=== PATIENT | female | born 1935 | race Caucasian/White ===

== ENCOUNTER 2017-02-07 23:01 | Emergency (ER) | payer MEDICARE, OTHER ==
[2017-02-07 23:52] VITALS: BP 141/68
--- NOTE | 2017-02-08 00:47 | EDM.PDOC ---
ED HPI GENERAL MEDICAL PROBLEM - General Chief Complaint: Genitourinary Problem Stated Complaint: BLADDER INFECTION Time Seen by Provider: 02/08/17 00:44 Source of Information: Reports: Patient, Family, RN Notes Reviewed History Limitations: Reports: No Limitations - History of Present Illness INITIAL COMMENTS - FREE TEXT/NARRATIVE: 81-year-old female presents emergency department day complaint burning with urination, she states the last couple days she denies any fevers nausea or vomiting - Related Data Allergies Allergy/AdvReac Type Severity Reaction Status Date / Time No Known Allergies Allergy Unverified 02/07/17 23:51 Home Meds: Home Meds NK [No Known Home Meds] 02/07/17 [History] Past Medical History HEENT History: Reports: Impaired Vision 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: Breast - Past Surgical History HEENT Surgical History: Reports: Cataract Surgery Oncologic Surgical History: Reports: Mastectomy Social & Family History - Tobacco Use Smoking Status *Q: Never Smoker Second Hand Smoke Exposure: No - Caffeine Use Caffeine Use: Reports: Coffee - Recreational Drug Use Recreational Drug Use: No ED ROS GENERAL - Review of Systems Review Of Systems: See Below Constitutional: Denies: Fever, Chills HEENT: Reports: No Symptoms Respiratory: Reports: No Symptoms Cardiovascular: Reports: No Symptoms GI/Abdominal: Reports: Abdominal Pain (Suprapubic area) : Reports: Dysuria ED EXAM, RENAL/ - Physical Exam Exam: See Below Exam Limited By: No Limitations General Appearance: Alert, WD/WN, No Apparent Distress GI/Abdominal: Soft, Non-Tender Back Exam: Full Range of Motion. No: CVA Tenderness (R), CVA Tenderness (L) Course - Vital Signs Last Recorded V/S: Last Vital Signs Temp 99.7 F 02/07/17 23:53 Pulse 78 02/07/17 23:53 Resp 18 02/07/17 23:53 BP 141/68 H 02/07/17 23:53 Pulse Ox 94 L 02/07/17 23:53 - Orders/Labs/Meds Orders: Active Orders 24 hr Category Date Time Status CULTURE URINE [RM] Urgent Lab 02/08/17 00:40 Ordered Labs: Laboratory Tests 02/08/17 Range/Units 00:05 Urine Color Yellow Urine Appearance Turbid Urine pH 5.0 (4.5-8.0) Ur Specific Verner 1.025 (1.008-1.030) Urine Protein 30 H (NEGATIVE) mg/dL Urine Glucose (UA) Normal (NEGATIVE) mg/dL Urine Ketones Negative (NEGATIVE) mg/dL Urine Occult Blood Large (NEGATIVE) Urine Nitrite Negative (NEGATIVE) Urine Bilirubin Negative (NEGATIVE) Urine Urobilinogen Normal (NORMAL) mg/dL Ur Leukocyte Esterase Large (NEGATIVE) Urine RBC 20-30 H (0-5) Urine WBC Semi-packed H (0-5) Ur Epithelial Cells Few Amorphous Sediment Not seen Urine Bacteria Many Urine Mucus Not seen Departure - Departure Time of Disposition: 00:46 Disposition: Home, Self-Care 01 Condition: Good Clinical Impression: UTI, Urinary tract infectious disease - Discharge Information Forms: ED Department Discharge Additional Instructions: Take full course of antibiotics, use Tylenol or Motrin as needed for symptomatic relief, Please followup with your primary care provider in 3-5 days if not better, please call return to the emergency department with worsening of symptoms. - My Orders Last 24 Hours: My Active Orders 02/08/17 00:40 CULTURE URINE [RM] Urgent - Assessment/Plan Last 24 Hours: My Active Orders 02/08/17 00:40 CULTURE URINE [RM] Urgent Plan: Assessment Acuity = acute Site and laterality = urinary tract infection Etiology = probable bacterial cause Manifestations = dysuria Location of injury = Home Lab values = urinalysis revealed 20-30 Rbc's consistent hematuria and semi- packed WBCs consistent with pyuria cultures pending Plan Plan to empirically treat with Bactrim DS 1 tab by mouth twice a day 5 days follow-up primary care 3-5 days if no improvement Patient was in agreement with the plan all questions were answered, they were instructed to return to the emergency department or call for worsening symptoms. This note was dictated using [employer] voice recognition software please call with any questions.
== END 2017-02-08 01:06 | disposition home or self-care (01) ==
LOC: JP.ED 23:01
DX: N39.0 Urinary tract infection, site not specified (principal); Z98.49 Cataract extraction status, unspecified eye; Z85.3 Personal history of malignant neoplasm of breast
CPT/HCPCS: 81001; 87086; 99283; 99284

== ENCOUNTER 2017-08-28 16:53 | Emergency (ER) | payer MEDICARE ==
[2017-08-28] MEDS ORDERED: Famotidine 20 MG Tab PO ONE (17:20)
[2017-08-28] MEDS ORDERED: Aluminum Hydroxide/Magnesium Hydroxide/Simethicone Susp 30 ML Cup PO ONE (17:20)
--- NOTE | 2017-08-28 17:26 | EDM.PDOC ---
ED HPI GENERAL MEDICAL PROBLEM - General Chief Complaint: Chest Pain Stated Complaint: CHEST PAINS Time Seen by Provider: 08/28/17 17:10 Source of Information: Reports: Patient, EMS, Old Records History Limitations: Reports: No Limitations - History of Present Illness INITIAL COMMENTS - FREE TEXT/NARRATIVE: 81 yo female presents from her home with intermittent substernal pressure. Today 's episode was longer than usual. Has had these spells on and off randomly for a few years. NTG en route via EMS reduced, but did not eliminate her pain. While getting assessed by nursing her pain fully resolved. Has had EST test more than once in the past to work this up and she has always been told there is nothing wrong with her heart. An EKG per EMS today was normal. Does not relate the onset of activities to activity, breathing, or eating/ swallowing. Has no associated nausea, diaphoresis or SOB. Onset: Today Onset Date: 08/28/17 Onset Time: 16:05 Duration: Minutes:, Improving Location: Reports: Chest (substernal) Quality: Reports: Pressure Severity: Moderate Improves with: Reports: None Worsens with: Reports: None Context: Reports: Other (unknown context) Associated Symptoms: Reports: No Other Symptoms Treatments RADIO OPERATOR: Reports: EKG, Nitroglycerin (partial reduction with this treatment) Mid-Sternal Chest Pain Score (Numeric/FACES): 7 - Related Data Allergies Allergy/AdvReac Type Severity Reaction Status Date / Time No Known Allergies Allergy Verified 08/28/17 17:08 Home Meds: Home Meds Famotidine 20 mg PO BEDTIME #30 tablet 08/28/17 [Rx] Past Medical History HEENT History: Reports: Cataract, Impaired Vision 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: 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: Breast Other Oncologic History: 2010 - Past Surgical History HEENT Surgical History: Reports: Cataract Surgery Oncologic Surgical History: Reports: Mastectomy Social & Family History - Tobacco Use Smoking Status *Q: Never Smoker Second Hand Smoke Exposure: No - Caffeine Use Caffeine Use: Reports: Coffee - Recreational Drug Use Recreational Drug Use: No ED ROS GENERAL - Review of Systems Review Of Systems: See Below Constitutional: Reports: No Symptoms HEENT: Reports: No Symptoms Respiratory: Reports: No Symptoms Cardiovascular: Reports: Chest Pain Endocrine: Reports: No Symptoms GI/Abdominal: Reports: No Symptoms : Reports: No Symptoms Musculoskeletal: Reports: Other (random intermittent sharp pain down her R leg starting at the hip area.) Skin: Reports: No Symptoms Neurological: Reports: No Symptoms ED EXAM, GENERAL - Physical Exam Exam: See Below Exam Limited By: No Limitations General Appearance: Alert, WD/WN, No Apparent Distress Eye Exam: Bilateral Eye: Normal Inspection Ears: Normal External Exam, Normal Canal, Hearing Grossly Normal Ear Exam: Bilateral Ear: Auricle Normal, Canal Normal Nose: Normal Inspection, Normal Mucosa, No Blood Throat/Mouth: Normal Inspection, Normal Lips, Normal Teeth, Normal Oropharynx, Normal Voice, No Airway Compromise Head: Atraumatic, Normocephalic Neck: Normal Inspection, Supple Respiratory/Chest: No Respiratory Distress, Lungs Clear, Normal Breath Sounds, No Accessory Muscle Use, Chest Non-Tender Cardiovascular: Regular Rate, Rhythm, No Edema GI/Abdominal: Normal Bowel Sounds, Soft, Non-Tender Back Exam: Normal Inspection. No: CVA Tenderness (R), CVA Tenderness (L) Extremities: Normal Inspection, Normal Range of Motion, Non-Tender, No Pedal Edema, Other (I am not able on exam to localize or reproduce the pain she described as intermittently shooting down her R leg. ) Neurological: Alert, Oriented, CN II-XII Intact, Normal Cognition, No Motor/ Sensory Deficits Psychiatric: Normal Affect, Normal Mood Skin Exam: Warm, Dry, Intact, Normal Color, No Rash Lymphatic: No Adenopathy EKG INTERPRETATION EKG Date: 08/28/17 Time: 16:45 Rhythm: NSR Rate (Beats/Min): 77 [place]: Normal P-Wave: Present QRS: Normal ST-T: Normal QT: Normal Comparison: NA - No Prior EKG EKG Interpretation Comments: Normal EKG Course - Vital Signs Text/Narrative:: famotidine 20 mg po, Maalox 30 ml po Ambulated in the ER without a recurrence of her pain. Last Recorded V/S: Last Vital Signs Temp 37.3 C 08/28/17 17:02 Pulse 63 08/28/17 17:02 Resp 18 08/28/17 17:02 BP 118/44 L 08/28/17 17:02 Pulse Ox 98 08/28/17 17:02 - Orders/Labs/Meds Labs: Laboratory Tests 08/28/17 08/28/17 08/28/17 Range/Units 16:57 16:57 16:57 WBC 10.9 (4.5-11.0) K/uL RBC 3.90 (3.30-5.50) M/uL Hgb 11.9 L (12.0-15.0) g/dL Hct 37.4 (36.0-48.0) % MCV 96 (80-98) fL MCH 31 (27-31) pg MCHC 32 (32-36) % Plt Count 227 (150-400) K/uL Sodium 137 L (140-148) mmol/L Potassium 3.6 (3.6-5.2) mmol/L Chloride 102 (100-108) mmol/L Carbon Dioxide 27 (21-32) mmol/L Anion Gap 11.6 (5.0-14.0) mmol/L BUN 22 H (7-18) mg/dL Creatinine 0.8 (0.6-1.0) mg/dL Est Cr Clr Drug Dosing 42.88 mL/min Estimated GFR (MDRD) > 60 (>60) Glucose 128 H (74-106) mg/dL Calcium 8.8 (8.5-10.1) mg/dL Troponin I < 0.017 (0.000-0.056) ng/mL Meds: Medications Discontinued Medications Generic Name Dose Route Start Last Admin Trade Name Nannette PRN Reason Stop Dose Admin Al Hydroxide/Mg Hydroxide 30 ml 08/28/17 17:20 08/28/17 17:31 Mag-Al Plus PO 08/28/17 17:21 30 ml ONETIME ONE Administration Famotidine 20 mg 08/28/17 17:20 08/28/17 17:31 Pepcid PO 08/28/17 17:21 20 mg ONETIME ONE Administration Departure - Departure Time of Disposition: 17:45 Disposition: Home, Self-Care 01 Condition: Good Clinical Impression: Nutcracker esophagus Referrals: PCP,None [Primary Care Provider] - Forms: ED Department Discharge
[2017-08-28 17:57] VITALS: BP 127/61
== END 2017-08-28 18:34 | disposition home or self-care (01) ==
LOC: JP.ED 16:53
DX: K22.4 Dyskinesia of esophagus (principal)
CPT/HCPCS: 36415; 80048; 84484; 85027; 99285; A9270

== ENCOUNTER 2020-02-27 10:25 | Emergency (ER) | payer MEDICARE ==
[2020-02-27 10:43] VITALS: BP 136/78; PULSE 81
[2020-02-27] MEDS ORDERED: Diphtheria,Pertussis(Acell),Tetanus Vaccine 0.5 ML SDV IM ONE (11:24)
--- NOTE | 2020-02-27 11:34 | EDM.PDOC ---
ED HPI GENERAL MEDICAL PROBLEM - General Chief Complaint: Laceration Stated Complaint: DOG BITE RT ARM Time Seen by Provider: 02/27/20 10:54 Source of Information: Reports: Patient History Limitations: Reports: No Limitations - History of Present Illness INITIAL COMMENTS - FREE TEXT/NARRATIVE: 84 yo female presents to clinic following a dog bite that occurred last evening. Her own dog was scared of fireworks and hiding under deck she tried to move the dog from the desk and the dog bit her right wrist breaking the skin. The dog is up to date on vaccinations. 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: Musculoskeletal History: Reports: Fracture 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: Breast Other Oncologic History: 2010 - Past Surgical History HEENT Surgical History: Reports: Cataract Surgery Oncologic Surgical History: Reports: Mastectomy Social & Family History - Tobacco Use Smoking Status *Q: Never Smoker - Caffeine Use Caffeine Use: Reports: Coffee - Recreational Drug Use Recreational Drug Use: No ED ROS GENERAL - Review of Systems Review Of Systems: See Below Constitutional: Denies: Fever, Chills, Fatigue Respiratory: Denies: Shortness of Breath, Wheezing Cardiovascular: Denies: Chest Pain ED EXAM, SKIN/RASH Exam: See Below Exam Limited By: No Limitations General Appearance: Alert, WD/WN, No Apparent Distress Respiratory/Chest: No Respiratory Distress Skin: Warm, Dry, Intact, Other (wound to right wrist superfisial on dorsal aspect from dog canines with superfisial punctures on anterior aspect, surrounding ecchymosis. cms distill to injury intact) Course - Vital Signs Last Recorded V/S: Last Vital Signs Temp 36.8 C 02/27/20 10:41 Pulse 81 02/27/20 10:41 Resp 16 02/27/20 10:41 BP 136/78 02/27/20 10:41 Pulse Ox 96 02/27/20 10:41 - Orders/Labs/Meds Orders: Active Orders 24 hr Category Date Time Status Vaccines to be Administered [RC] PER UNIT ROUTINE Care 02/27/20 11:24 Active Meds: Medications Discontinued Medications Generic Name Dose Route Start Last Admin Trade Name Nannette PRN Reason Stop Dose Admin Diphtheria/Tetanus/Acell Pertussis 0.5 ml 02/27/20 11:24 Adacel IM 02/27/20 11:25 .ONCE ONE Departure - Departure Time of Disposition: 11:29 Disposition: Home, Self-Care 01 Condition: Good Clinical Impression: Dog bite of right arm Qualifiers: Encounter type: initial encounter Qualified Code(s): S41.151A - Open bite of right upper arm, initial encounter - Discharge Information *PRESCRIPTION DRUG MONITORING PROGRAM REVIEWED*: Not Applicable *COPY OF PRESCRIPTION DRUG MONITORING REPORT IN PATIENT RONNIE: Not Applicable Instructions: Animal Bite, Adult, [id number] Referrals: Kiko Ewing MD [Primary Care Provider] - Forms: ED Department Discharge Additional Instructions: wash with warm soapy water pat dry topical antibiotic until healed Augmentin 500 mg twice daily for 3 days observe for signs of infection: fire engine red, purulent drainage, increase in pain Sepsis Event Note (ED) - Evaluation Sepsis Screening Result: No Definite Risk - Focused Exam Vital Signs: Vital Signs Temp Pulse Resp BP Pulse Ox 02/27/20 10:41 36.8 C 81 16 136/78 96 - My Orders Last 24 Hours: My Active Orders 02/27/20 11:24 Vaccines to be Administered [RC] PER UNIT ROUTINE - Assessment/Plan Last 24 Hours: My Active Orders 02/27/20 11:24 Vaccines to be Administered [RC] PER UNIT ROUTINE
== END 2020-02-27 11:50 | disposition home or self-care (01) ==
LOC: JP.ED 10:25
DX: S41.151A Open bite of right upper arm, initial encounter (principal); Z23 Encounter for immunization; Z98.890 Other specified postprocedural states; W54.0XXA Bitten by dog, initial encounter
CPT/HCPCS: 90471; 90715; 99283

== ENCOUNTER 2021-04-20 00:07 | Inpatient (IN) | payer MEDICARE ==
[2021-04-20] MEDS ORDERED: Sodium Chloride 0.9% 10 ML Syringe FLUSH PRN ×2 (00:30→02:52)
--- NOTE | 2021-04-20 00:48 | EDM.PDOC ---
ED HPI GENERAL MEDICAL PROBLEM - General Chief Complaint: Respiratory Problem Stated Complaint: COVID POSITIVE Time Seen by Provider: 04/20/21 00:30 Source of Information: Reports: Patient, Family History Limitations: Reports: Other (Is extremely hard of hearing and did not put new batteries in her hearing aids. Her daughter communicated with the patient via of phone with text messaging.) - History of Present Illness INITIAL COMMENTS - FREE TEXT/NARRATIVE: Yenifer is an 85-year-old female presenting to the ED for evaluation of worsening shortness of breath, fever and hypoxia associated with COVID-19 infection. The patient was initially diagnosed with COVID-19 on 04/08/2021. She did not receive a COVID-19 vaccine. Appears that the patient's son first had the infection. He lives with the patient and she subsequently developed symptoms including fever, chills, headache and body aches, decreased appetite, shortness of breath, cough, and diarrhea. The patient had been doing better over the course of the last couple of days after being started on dexamethasone 4 mg daily x5 days. She concluded this regimen today and daughter checked on the patient finding her to be hypoxic at 88% on room air and becoming further hypoxic to 84% with activity. The patient has had significant diminished appetite, continues to have a low- grade fever at 100 F, and has had diarrhea for the last day or 2. The daughter did get her electrolyte rich solutions like Pedialyte to try to rehydrate her but the patient has no appetite and only forces herself to eat out of the need for nutrition. Daughter tried to get a hold of Dr. Ewing who was the patient's primary provider to see if they could get home oxygen for the patient, however, the clinic is already closed and he was not available to arrange this. With the patient's worsening condition today and progressive hypoxia, the daughter elected to bring the patient in for evaluation and likely hospitalization. The daughter does report that the patient has had grunting respirations today which is unusual. 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: Musculoskeletal History: Reports: Fracture 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: Breast Other Oncologic History: 2010 - Infectious Disease History Infectious Disease History: Reports: Chicken Pox, Measles, Mumps - Past Surgical History HEENT Surgical History: Reports: Cataract Surgery Oncologic Surgical History: Reports: Mastectomy Social & Family History - Tobacco Use Tobacco Use Status *Q: Never Tobacco User - Caffeine Use Caffeine Use: Reports: Coffee ED ROS GENERAL - Review of Systems Review Of Systems: See Below Constitutional: Reports: Fever, Chills, Malaise, Weakness, Diaphoresis, Decreased Appetite HEENT: Reports: Throat Pain Respiratory: Reports: Shortness of Breath, Cough Cardiovascular: Reports: Dyspnea on Exertion Endocrine: Reports: Fatigue GI/Abdominal: Reports: Diarrhea : Reports: No Symptoms Musculoskeletal: Reports: Muscle Pain Skin: Reports: No Symptoms Neurological: Reports: Headache Psychiatric: Reports: No Symptoms Hematologic/Lymphatic: Reports: No Symptoms Immunologic: Reports: No Symptoms ED EXAM, GENERAL - Physical Exam Exam: See Below Exam Limited By: No Limitations General Appearance: Alert, Anxious, Mild Distress Eye Exam: Bilateral Eye: EOMI, PERRL Nose: Nasal Swelling, Nasal Drainage Throat/Mouth: Normal Voice, No Airway Compromise, Other (Dry mucous membranes) Head: Atraumatic, Normocephalic Neck: Normal Inspection, Supple. No: Lymphadenopathy (R), Lymphadenopathy (L) Respiratory/Chest: No Respiratory Distress, Decreased Breath Sounds (Diminished breath sounds in both bases), Rhonchi (Scattered rhonchi) Cardiovascular: Normal Peripheral Pulses, Regular Rate, Rhythm, No Murmur Peripheral Pulses: 2+: Radial (L), Radial (R), Posterior Tibial (L), Posterior Tibial (R) GI/Abdominal: Soft, Non-Tender, Abnormal Bowel Sounds (Diminished bowel sounds). No: Guarding, Rebound Extremities: Normal Inspection, Normal Range of Motion, No Pedal Edema Neurological: Alert, Normal Cognition, No Motor/Sensory Deficits Psychiatric: Anxious Skin Exam: Warm, Dry, Intact Course - Vital Signs Last Recorded V/S: Last Vital Signs Temp 38.8 C H 04/20/21 00:19 Pulse 95 04/20/21 00:19 Resp 20 04/20/21 00:19 BP 154/65 H 04/20/21 00:19 Pulse Ox 84 L 04/20/21 00:19 - Orders/Labs/Meds Orders: Active Orders 24 hr Category Date Time Status Chest 1V Frontal [CR] Stat Exams 04/20/21 00:30 Taken Sodium Chloride 0.9% [Saline Flush] Med 04/20/21 00:30 Active 10 ml FLUSH ASDIRECTED PRN Saline Lock Insert [OM.PC] Routine Oth 04/20/21 00:30 Ordered Medication Orders Sodium Chloride (Sodium Chloride 0.9% 10 Ml Syringe) 10 ml FLUSH ASDIRECTED PRN PRN Reason: Keep Vein Open Last Admin: 04/20/21 00:51 Dose: 10 ml Documented by: JAMSHID Labs: Laboratory Tests 04/20/21 04/20/21 04/20/21 Range/Units 00:40 00:40 00:40 WBC 9.3 (4.5-11.0) K/uL RBC 4.23 (3.30-5.50) M/uL Hgb 12.8 (12.0-15.0) g/dL Hct 37.6 (36.0-48.0) % MCV 89 (80-98) fL MCH 30 (27-31) pg MCHC 34 (32-36) % Plt Count 176 (150-400) K/uL Neut % (Auto) 92.4 H (36-66) % Lymph % (Auto) 4.0 L (24-44) % [place] % (Auto) 3.4 (2-6) % Eos % (Auto) 0.0 L (2-4) % Baso % (Auto) 0.2 (0-1) % D-Dimer, Quantitative 984.09 H (0.0-500.0) ng/mL Sodium 129 L (140-148) mmol/L Potassium 4.8 (3.6-5.2) mmol/L Chloride 95 L (100-108) mmol/L Carbon Dioxide 24 (21-32) mmol/L Anion Gap 14.8 H (5.0-14.0) mmol/L BUN 18 (7-18) mg/dL Creatinine 0.8 (0.6-1.0) mg/dL Est Cr Clr Drug Dosing 41.76 mL/min Estimated GFR (MDRD) > 60 (>60) Glucose 140 H (74-106) mg/dL Lactic Acid (0.4-2.0) mmol/L Calcium 7.8 L (8.5-10.1) mg/dL Ferritin 1263 H (8-388) ng/ml Total Bilirubin 0.7 (0.2-1.0) mg/dL AST 59 H (15-37) U/L ALT 46 (12-78) U/L Alkaline Phosphatase 42 L (46-116) U/L Lactate Dehydrogenase 530 H (82-234) U/L C-Reactive Protein 17.39 H (0.0-0.3) mg/dL Total Protein 5.6 L (6.4-8.2) g/dL Albumin 2.4 L (3.4-5.0) g/dL Globulin 3.2 (2.3-3.5) g/dL Albumin/Globulin Ratio 0.8 L (1.2-2.2) 04/20/21 Range/Units 00:40 WBC (4.5-11.0) K/uL RBC (3.30-5.50) M/uL Hgb (12.0-15.0) g/dL Hct (36.0-48.0) % MCV (80-98) fL MCH (27-31) pg MCHC (32-36) % Plt Count (150-400) K/uL Neut % (Auto) (36-66) % Lymph % (Auto) (24-44) % [place] % (Auto) (2-6) % Eos % (Auto) (2-4) % Baso % (Auto) (0-1) % D-Dimer, Quantitative (0.0-500.0) ng/mL Sodium (140-148) mmol/L Potassium (3.6-5.2) mmol/L Chloride (100-108) mmol/L Carbon Dioxide (21-32) mmol/L Anion Gap (5.0-14.0) mmol/L BUN (7-18) mg/dL Creatinine (0.6-1.0) mg/dL Est Cr Clr Drug Dosing mL/min Estimated GFR (MDRD) (>60) Glucose (74-106) mg/dL Lactic Acid 2.5 H (0.4-2.0) mmol/L Calcium (8.5-10.1) mg/dL Ferritin (8-388) ng/ml Total Bilirubin (0.2-1.0) mg/dL AST (15-37) U/L ALT (12-78) U/L Alkaline Phosphatase (46-116) U/L Lactate Dehydrogenase (82-234) U/L C-Reactive Protein (0.0-0.3) mg/dL Total Protein (6.4-8.2) g/dL Albumin (3.4-5.0) g/dL Globulin (2.3-3.5) g/dL Albumin/Globulin Ratio (1.2-2.2) Meds: Medications Generic Name Dose Route Start Last Admin Trade Name Freq PRN Reason Stop Dose Admin Sodium Chloride 10 ml 04/20/21 00:30 04/20/21 00:51 Sodium Chloride 0.9% 10 Ml Syringe FLUSH 10 ml ASDIRECTED PRN Administration Keep Vein Open - Radiology Interpretation Free Text/Narrative:: He 1 view chest x-ray obtained on the patient showing scattered fluffy infiltrates in both lungs consistent with Covid lung. These likely represent micro emboli and small pulmonary infarcts. - Re-Assessments/Exams Free Text/Narrative Re-Assessment/Exam: 04/20/21 01:55 reviewed the patient's labs showing a CBC with a leukocyte count of 9.3, hemoglobin of 12.8, hematocrit of 37.6 and a platelet count of 176,000. Was a normal differential and leukocyte count. The patient has mild hyponatremia with a sodium of 129 and a chloride of 95, potassium is 4.8 and bicarbonate is 23.9, BUN of 18 with a creatinine of 0.7 and a glucose of 140. Venous lactic acid is elevated at 2.5, C-reactive protein is elevated at 17.4, LDH is elevated at 530, and D-dimer is elevated at 984. Calcium is low at 7.8 with an albumin of 2.4 the gives a corrected calcium of 8.6. Is in normal range. Chest x-ray is obtained showing scattered fluffy infiltrates consistent with Covid lung likely representing micro emboli. This would account for the markedly elevated D-dimer. The patient is requiring oxygen to maintain saturations above 90% so she will likely need to be admitted. Her primary care provider happens to be the hospitalist on-call Dr. Gildardo rg so I will call him to alert him to her admission. Departure - Departure Time of Disposition: 01:58 Disposition: Admitted As Inpatient 65 Clinical Impression: COVID-19, Hypoxia, Hyponatremia - Discharge Information Referrals: Kiko Ewing MD [Primary Care Provider] - Forms: ED Department Discharge Sepsis Event Note (ED) - Evaluation Sepsis Screening Result: Possible Sepsis Risk - Focused Exam Vital Signs: Vital Signs Temp Pulse Resp BP Pulse Ox 04/20/21 00:19 38.8 C H 95 20 154/65 H 84 L - Problem List & Annotations (1) COVID-19 SNOMED Code(s): 087731614 Code(s): U07.1 - COVID-19 Status: Acute Priority: High Current Visit: Yes (2) Hyponatremia SNOMED Code(s): 25144112 Code(s): E87.1 - HYPO-OSMOLALITY AND HYPONATREMIA Status: Acute Priority: High Current Visit: Yes (3) Hypoxia SNOMED Code(s): 916343251 Code(s): R09.02 - HYPOXEMIA Status: Acute Priority: High Current Visit: Yes - Problem List Review Problem List Initiated/Reviewed/Updated: Yes - My Orders Last 24 Hours: My Active Orders 04/20/21 00:30 Chest 1V Frontal [CR] Stat Sodium Chloride 0.9% [Saline Flush] 10 ml FLUSH ASDIRECTED PRN Saline Lock Insert [OM.PC] Routine - Assessment/Plan Last 24 Hours: My Active Orders 04/20/21 00:30 Chest 1V Frontal [CR] Stat Sodium Chloride 0.9% [Saline Flush] 10 ml FLUSH ASDIRECTED PRN Saline Lock Insert [OM.PC] Routine
[2021-04-20] MEDS ORDERED: Enoxaparin 80 MG/0.8 ML Syringe SUBCUT SCH (03:30)
--- NOTE | 2021-04-20 03:49 | HP ---
CHIEF COMPLAINT: Shortness of breath with low O2 saturations. HISTORY OF PRESENT ILLNESS: This 85-year-old was diagnosed with COVID about 10 days ago. Five days ago, she did call because she was short of breath, looking for symptom relief or treatment. At that time, I did recommend monoclonal antibodies which she did decline, but also recommended dexamethasone, which she finished yesterday. Her daughter is with her today in the emergency room after being brought in from home. Apparently, she was doing better. Her breathing was better, but the morning of the she was having more trouble with breathing, gasping at times with low O2 saturation, and they brought her into the emergency room for further evaluation. She was noted to have low O2 sats with hypoxia with abnormal chest x-ray, and I was asked to admit the patient for further evaluation and treatment. The patient does not have batteries in her hearing aids, so it is very difficult for her to hear, but her daughter would text her, and she would answer. PAST MEDICAL HISTORY: 1. History of breast cancer. 2. Diverticulitis in the past. 3. Nutcracker esophagus. 4. Osteoarthritis of right knee. 5. Recurrent urinary tract infections. CURRENT MEDICATIONS: Just finished dexamethasone 4 mg daily, zinc 25 mg daily, turmeric 500 mg daily, grape seed extract 100 mg daily, astaxanthin 4 mg daily, magnesium 500 mg daily, calcium 250 mg daily, Krill oil 500 mg daily, vitamin D3 1000 units daily, probiotic daily, and multivitamin daily. ALLERGIES: NONE. SOCIAL HISTORY: She has never smoked. FAMILY HISTORY: Noncontributory. REVIEW OF SYSTEMS: She did have problems with nausea earlier in the week, but that is better. She has been running a fever off and on. No report of any chest pain other than tightness in her chest with shortness of breath and cough. No diarrhea. No urinary problems. PHYSICAL EXAMINATION: VITAL SIGNS: Her weight in the clinic last was on 04/03/2021, and it was 67 kg at that time. Temperature 38.8, pulse 95, blood pressure 154/65, respirations 20, and O2 saturation 84% on room air. GENERAL: The patient is very hard hearing, which makes communication difficult with her. HEENT: Pharynx is clear. NECK: Supple. No adenopathy or thyromegaly. LUNGS: Coarse bilaterally. HEART: Regular. I do not hear any murmurs. ABDOMEN: Soft. It did not appear to cause any tenderness. No mass or organomegaly palpated. EXTREMITIES: No edema. SKIN: Negative. IMAGING: Chest x-ray does show patchy infiltrates consistent with COVID pneumonia. LABORATORY DATA: White count 9.3, hemoglobin 12.8, and platelets 176,000. D-dimer was elevated at 984. Sodium 129, potassium 4.8, chloride 95, BUN is 18, creatinine 0.8, and glucose 140. Lactic acid was elevated at 2.5. Calcium is low at 7.8. Ferritin 1263. Liver functions: AST was slightly elevated at 59, ALT was normal at 46, and bilirubin normal at 0.7. C-reactive protein was elevated at 17.39. LDH was elevated at 530. ASSESSMENT: 1. COVID pneumonia with elevated D-dimer. Because of this, we will start her on subcutaneous Lovenox b.i.d. and oxygen. She just finished a course of dexamethasone, and it is too far out for remdesivir or monoclonal antibodies. I did talk to the daughter regarding code status, and she does not think that she would want to be put on a ventilator, but difficult to communicate with her now. We will see if we can find healthcare directive. We will admit her inpatient. Anticipate more than two midnight stays. Transfer care to the hospitalist service in the morning. 2. History of breast cancer in the past. 3. Osteoarthritis of right knee. 4. Recurring urinary tract infections. Kiko Ewing MD /[id number]
[2021-04-20] MEDS: guaiFENesin/Dextromethorphan 100-10 MG/5 ML Soln 10 ML Cup PO PRN (10:58)
[2021-04-20] MEDS: Dexamethasone 4 MG/ML SDV IVPUSH SCH (10:58)
[2021-04-20] MEDS ORDERED: Ondansetron 4 MG Tab.DIS PO PRN (12:09)
[2021-04-20] MEDS ORDERED: Ondansetron 4 MG/2 ML SDV IVPUSH PRN (12:09)
--- NOTE | 2021-04-20 12:10 | PCM.PN ---
- General Info Date of Service: 04/20/21 Subjective Update: No acute events overnight following admission. Communication is difficult because she is very hard of hearing. She did not report any chest pain. She has been on 3 L for the most part but did require more supplemental oxygen for a period of time. Seems to be doing better laying on her side or partially on her stomach. She has a dry cough. No fevers this morning. We did discuss remdesivir and at this time she would like to avoid the medication because of concerns about potential side effects that she has heard about. She is interested in dexamethasone. - Review of Systems General: Reports: Fever, Weakness Pulmonary: Reports: Shortness of Breath - Patient Data Vitals - Most Recent: Last Vital Signs Temp 37.8 C 04/20/21 11:12 Pulse 79 04/20/21 11:12 Resp 21 H 04/20/21 11:12 BP 104/46 L 04/20/21 11:12 Pulse Ox 91 L 04/20/21 11:12 Weight - Most Recent: 63.957 kg Lab Results Last 24 Hours: Laboratory Results - last 24 hr 04/20/21 04/20/21 04/20/21 Range/Units 00:40 00:40 00:40 WBC 9.3 (4.5-11.0) K/uL RBC 4.23 (3.30-5.50) M/uL Hgb 12.8 (12.0-15.0) g/dL Hct 37.6 (36.0-48.0) % MCV 89 (80-98) fL MCH 30 (27-31) pg MCHC 34 (32-36) % Plt Count 176 (150-400) K/uL Neut % (Auto) 92.4 H (36-66) % Lymph % (Auto) 4.0 L (24-44) % Carver % (Auto) 3.4 (2-6) % Eos % (Auto) 0.0 L (2-4) % Baso % (Auto) 0.2 (0-1) % D-Dimer, Quantitative 984.09 H (0.0-500.0) ng/mL Sodium 129 L (140-148) mmol/L Potassium 4.8 (3.6-5.2) mmol/L Chloride 95 L (100-108) mmol/L Carbon Dioxide 24 (21-32) mmol/L Anion Gap 14.8 H (5.0-14.0) mmol/L BUN 18 (7-18) mg/dL Creatinine 0.8 (0.6-1.0) mg/dL Est Cr Clr Drug Dosing 41.76 mL/min Estimated GFR (MDRD) > 60 (>60) Glucose 140 H (74-106) mg/dL Lactic Acid (0.4-2.0) mmol/L Calcium 7.8 L (8.5-10.1) mg/dL Ferritin 1263 H (8-388) ng/ml Total Bilirubin 0.7 (0.2-1.0) mg/dL AST 59 H (15-37) U/L ALT 46 (12-78) U/L Alkaline Phosphatase 42 L (46-116) U/L Lactate Dehydrogenase 530 H (82-234) U/L C-Reactive Protein 17.39 H (0.0-0.3) mg/dL Total Protein 5.6 L (6.4-8.2) g/dL Albumin 2.4 L (3.4-5.0) g/dL Globulin 3.2 (2.3-3.5) g/dL Albumin/Globulin Ratio 0.8 L (1.2-2.2) 04/20/21 Range/Units 00:40 WBC (4.5-11.0) K/uL RBC (3.30-5.50) M/uL Hgb (12.0-15.0) g/dL Hct (36.0-48.0) % MCV (80-98) fL MCH (27-31) pg MCHC (32-36) % Plt Count (150-400) K/uL Neut % (Auto) (36-66) % Lymph % (Auto) (24-44) % Carver % (Auto) (2-6) % Eos % (Auto) (2-4) % Baso % (Auto) (0-1) % D-Dimer, Quantitative (0.0-500.0) ng/mL Sodium (140-148) mmol/L Potassium (3.6-5.2) mmol/L Chloride (100-108) mmol/L Carbon Dioxide (21-32) mmol/L Anion Gap (5.0-14.0) mmol/L BUN (7-18) mg/dL Creatinine (0.6-1.0) mg/dL Est Cr Clr Drug Dosing mL/min Estimated GFR (MDRD) (>60) Glucose (74-106) mg/dL Lactic Acid 2.5 H (0.4-2.0) mmol/L Calcium (8.5-10.1) mg/dL Ferritin (8-388) ng/ml Total Bilirubin (0.2-1.0) mg/dL AST (15-37) U/L ALT (12-78) U/L Alkaline Phosphatase (46-116) U/L Lactate Dehydrogenase (82-234) U/L C-Reactive Protein (0.0-0.3) mg/dL Total Protein (6.4-8.2) g/dL Albumin (3.4-5.0) g/dL Globulin (2.3-3.5) g/dL Albumin/Globulin Ratio (1.2-2.2) Med Orders - Current: Current Medications Acetaminophen (Acetaminophen 325 Mg Tab) 650 mg PO Q4H PRN PRN Reason: Pain/Fever Benzonatate (Benzonatate 100 Mg Cap) 100 mg PO Q8H PRN PRN Reason: Cough Dexamethasone (Dexamethasone 4 Mg/Ml Sdv) 6 mg IVPUSH Q24H [facility] Last Admin: 04/20/21 10:58 Dose: 6 mg Documented by: Enoxaparin Sodium (Enoxaparin 40 Mg/0.4 Ml Syringe) 40 mg SUBCUT DAILY [facility] Guaifenesin/Dextromethorphan (Guaifenesin/Dextromethorphan 100-10 Mg/5 Ml Soln 10 Ml Cup) 10 ml PO Q4H PRN PRN Reason: Cough Last Admin: 04/20/21 10:58 Dose: 10 ml Documented by: Melatonin (Melatonin 3 Mg Tab) 9 mg PO BEDTIME PRN PRN Reason: Sleep Sodium Chloride (Sodium Chloride 0.9% 10 Ml Syringe) 10 ml FLUSH ASDIRECTED PRN PRN Reason: Keep Vein Open Discontinued Medications Enoxaparin Sodium (Enoxaparin 80 Mg/0.8 Ml Syringe) 70 mg SUBCUT Q12H [facility] Last Admin: 04/20/21 03:34 Dose: 70 mg Documented by: Sodium Chloride (Sodium Chloride 0.9% 10 Ml Syringe) 10 ml FLUSH ASDIRECTED PRN PRN Reason: Keep Vein Open Last Admin: 04/20/21 00:51 Dose: 10 ml Documented by: - Exam Quality Assessment: Supplemental Oxygen General: Alert, Cooperative, No Acute Distress Lungs: Normal Respiratory Effort, Crackles (few throughout right lung, left clear). No: Wheezing Cardiovascular: Regular Rate, Regular Rhythm GI/Abdominal Exam: Soft, No Distention Extremities: No Pedal Edema. No: Increased Warmth Skin: Warm, Dry Neurological: Other (very hard of hearing ) Psy/Mental Status: Alert, Normal Affect - Patient Data Lab Results Last 24 hrs: Laboratory Results - last 24 hr 04/20/21 04/20/21 04/20/21 Range/Units 00:40 00:40 00:40 WBC 9.3 (4.5-11.0) K/uL RBC 4.23 (3.30-5.50) M/uL Hgb 12.8 (12.0-15.0) g/dL Hct 37.6 (36.0-48.0) % MCV 89 (80-98) fL MCH 30 (27-31) pg MCHC 34 (32-36) % Plt Count 176 (150-400) K/uL Neut % (Auto) 92.4 H (36-66) % Lymph % (Auto) 4.0 L (24-44) % Carver % (Auto) 3.4 (2-6) % Eos % (Auto) 0.0 L (2-4) % Baso % (Auto) 0.2 (0-1) % D-Dimer, Quantitative 984.09 H (0.0-500.0) ng/mL Sodium 129 L (140-148) mmol/L Potassium 4.8 (3.6-5.2) mmol/L Chloride 95 L (100-108) mmol/L Carbon Dioxide 24 (21-32) mmol/L Anion Gap 14.8 H (5.0-14.0) mmol/L BUN 18 (7-18) mg/dL Creatinine 0.8 (0.6-1.0) mg/dL Est Cr Clr Drug Dosing 41.76 mL/min Estimated GFR (MDRD) > 60 (>60) Glucose 140 H (74-106) mg/dL Lactic Acid (0.4-2.0) mmol/L Calcium 7.8 L (8.5-10.1) mg/dL Ferritin 1263 H (8-388) ng/ml Total Bilirubin 0.7 (0.2-1.0) mg/dL AST 59 H (15-37) U/L ALT 46 (12-78) U/L Alkaline Phosphatase 42 L (46-116) U/L Lactate Dehydrogenase 530 H (82-234) U/L C-Reactive Protein 17.39 H (0.0-0.3) mg/dL Total Protein 5.6 L (6.4-8.2) g/dL Albumin 2.4 L (3.4-5.0) g/dL Globulin 3.2 (2.3-3.5) g/dL Albumin/Globulin Ratio 0.8 L (1.2-2.2) 04/20/21 Range/Units 00:40 WBC (4.5-11.0) K/uL RBC (3.30-5.50) M/uL Hgb (12.0-15.0) g/dL Hct (36.0-48.0) % MCV (80-98) fL MCH (27-31) pg MCHC (32-36) % Plt Count (150-400) K/uL Neut % (Auto) (36-66) % Lymph % (Auto) (24-44) % Carver % (Auto) (2-6) % Eos % (Auto) (2-4) % Baso % (Auto) (0-1) % D-Dimer, Quantitative (0.0-500.0) ng/mL Sodium (140-148) mmol/L Potassium (3.6-5.2) mmol/L Chloride (100-108) mmol/L Carbon Dioxide (21-32) mmol/L Anion Gap (5.0-14.0) mmol/L BUN (7-18) mg/dL Creatinine (0.6-1.0) mg/dL Est Cr Clr Drug Dosing mL/min Estimated GFR (MDRD) (>60) Glucose (74-106) mg/dL Lactic Acid 2.5 H (0.4-2.0) mmol/L Calcium (8.5-10.1) mg/dL Ferritin (8-388) ng/ml Total Bilirubin (0.2-1.0) mg/dL AST (15-37) U/L ALT (12-78) U/L Alkaline Phosphatase (46-116) U/L Lactate Dehydrogenase (82-234) U/L C-Reactive Protein (0.0-0.3) mg/dL Total Protein (6.4-8.2) g/dL Albumin (3.4-5.0) g/dL Globulin (2.3-3.5) g/dL Albumin/Globulin Ratio (1.2-2.2) Result Diagrams: 04/20/21 00:40 04/20/21 00:40 Sepsis Event Note - Evaluation Sepsis Screening Result: Possible Sepsis Risk - Focused Exam Vital Signs: Vital Signs Temp Temp Pulse Resp BP Pulse Ox Pulse Ox 04/20/21 11:12 37.8 C 79 21 H 104/46 L 91 L 04/20/21 11:05 83 L 04/20/21 08:38 99 04/20/21 08:00 37.1 C 83 21 H 96/60 88 L 04/20/21 07:01 89 L 04/20/21 04:24 92 L 04/20/21 04:00 92 L 04/20/21 03:55 86 L 04/20/21 03:49 37.9 C 87 36 H 181/93 H 90 L 04/20/21 03:12 93 L 04/20/21 00:19 38.8 C H 95 20 154/65 H 84 L - Problem List Review Problem List Initiated/Reviewed/Updated: Yes - My Orders Last 24 Hours: My Active Orders 04/20/21 08:38 Pulse Oximetry [RC] ASDIRECTED Benzonatate [Tessalon Perles] 100 mg PO Q8H PRN Dextromethorphan/guaiFENesin [Robitussin DM] 10 ml PO Q4H PRN 04/20/21 09:00 dexAMETHasone [Decadron] 6 mg IVPUSH Q24H 04/20/21 11:22 Acetaminophen [TylenoL] 650 mg PO Q4H PRN Melatonin 9 mg PO BEDTIME PRN 04/20/21 12:09 Ondansetron [Zofran ODT] 4 mg PO Q4H PRN Ondansetron [Zofran] 4 mg IVPUSH Q4H PRN 04/21/21 09:00 Enoxaparin [Lovenox] 40 mg SUBCUT DAILY - Plan Plan:: ASSESSMENT AND PLAN - COVID-19 pneumonia-complicated by acute respiratory failure with hypoxia. She has not been vaccinated. Tested positive on April 10. Mild elevation of D- dimer but significant elevation of CRP. Interested in steroids but not in remdesivir. -Dexamethasone 6 mg daily (day 4, had 3 days as an outpatient) -Supplement oxygen as needed -Symptomatic management of cough -Goal of negative fluid balance each day -Isolation precautions Maintenance issues - -DVT prophylaxis-enoxaparin -GI prophylaxis-not indicated -Nutrition-regular -Burrell catheter-not indicated Disposition -I anticipate discharge home after the hospital stay Primary care physician -Dr. Gildardo Barrera M.D.
[2021-04-20] MEDS: Benzonatate 100 MG Cap PO PRN (15:15)
[2021-04-21] MEDS: guaiFENesin/Dextromethorphan 100-10 MG/5 ML Soln 10 ML Cup PO PRN ×3 (08:41→22:39)
[2021-04-21] MEDS: Benzonatate 100 MG Cap PO PRN (08:41)
[2021-04-21] MEDS: Dexamethasone 4 MG/ML SDV IVPUSH SCH (08:46)
[2021-04-21] MEDS: Enoxaparin 40 MG/0.4 ML Syringe SUBCUT SCH (08:58)
[2021-04-21] MEDS: Acetaminophen 325 MG Tab PO PRN ×2 (11:46→22:41)
--- NOTE | 2021-04-21 13:57 | PCM.PN ---
- General Info Date of Service: 04/21/21 Subjective Update: There were no acute events overnight. Respiratory status have been stable but she has had increasing supplemental oxygen requirements throughout the morning. Worsening of the breathing seem to happen after a coughing spell that was difficult to recover from. No fevers. Seems to have stabilized and is more comfortable now. No chest pain. Feels short of breath and has a dry cough. No diarrhea. We did review potential medication treatments. We reviewed baricitinib and she was interested in trying this. Functional Status: Reports: Pain Controlled - Review of Systems General: Reports: Weakness Pulmonary: Reports: Shortness of Breath, Cough - Patient Data Vitals - Most Recent: Last Vital Signs Temp 36.3 C 04/21/21 11:49 Pulse 76 04/21/21 11:49 Resp 21 H 04/21/21 11:49 BP 121/57 L 04/21/21 11:49 Pulse Ox 92 L 04/21/21 13:47 Weight - Most Recent: 63.957 kg I&O - Last 24 Hours: Intake & Output 04/20/21 04/21/21 04/21/21 22:59 06:59 14:59 Intake Total 296 120 Balance 296 120 Med Orders - Current: Current Medications Acetaminophen (Acetaminophen 325 Mg Tab) 650 mg PO Q4H PRN PRN Reason: Pain/Fever Last Admin: 04/21/21 11:46 Dose: 650 mg Documented by: Benzonatate (Benzonatate 100 Mg Cap) 100 mg PO Q8H PRN PRN Reason: Cough Last Admin: 04/21/21 08:41 Dose: 100 mg Documented by: Dexamethasone (Dexamethasone 4 Mg/Ml Sdv) 6 mg IVPUSH Q24H [facility] Last Admin: 04/21/21 08:46 Dose: 6 mg Documented by: Enoxaparin Sodium (Enoxaparin 40 Mg/0.4 Ml Syringe) 40 mg SUBCUT DAILY [facility] Last Admin: 04/21/21 08:58 Dose: 40 mg Documented by: Guaifenesin/Dextromethorphan (Guaifenesin/Dextromethorphan 100-10 Mg/5 Ml Soln 10 Ml Cup) 10 ml PO Q4H PRN PRN Reason: Cough Last Admin: 04/21/21 08:41 Dose: 10 ml Documented by: Lorazepam (Lorazepam Oral Concentrate 1mg/0.5ml U/D) 0.25 mg PO Q2H PRN PRN Reason: Anxiety Melatonin (Melatonin 3 Mg Tab) 9 mg PO BEDTIME PRN PRN Reason: Sleep Morphine Sulfate (Morphine 10 Mg/0.5 Ml Oral Syringe) 5 mg PO Q2H PRN PRN Reason: pain/air hunger Ondansetron HCl (Ondansetron 4 Mg Tab.Dis) 4 mg PO Q4H PRN PRN Reason: Nausea/Vomiting Ondansetron HCl (Ondansetron 4 Mg/2 Ml Sdv) 4 mg IVPUSH Q4H PRN PRN Reason: Nausea/Vomiting Sodium Chloride (Sodium Chloride 0.9% 10 Ml Syringe) 10 ml FLUSH ASDIRECTED PRN PRN Reason: Keep Vein Open Discontinued Medications Enoxaparin Sodium (Enoxaparin 80 Mg/0.8 Ml Syringe) 70 mg SUBCUT Q12H [facility] Last Admin: 04/20/21 03:34 Dose: 70 mg Documented by: Sodium Chloride (Sodium Chloride 0.9% 10 Ml Syringe) 10 ml FLUSH ASDIRECTED PRN PRN Reason: Keep Vein Open Last Admin: 04/20/21 00:51 Dose: 10 ml Documented by: - Exam Quality Assessment: Supplemental Oxygen General: Alert, Oriented, Cooperative, No Acute Distress Lungs: Crackles (mild diffuse, dry ). No: Normal Respiratory Effort (increased work of breathing ), Wheezing Cardiovascular: Regular Rate, Regular Rhythm GI/Abdominal Exam: Soft, No Distention Extremities: No Pedal Edema. No: Increased Warmth Skin: Warm, Dry Psy/Mental Status: Alert, Normal Affect - Patient Data Result Diagrams: 04/20/21 00:40 04/20/21 00:40 Sepsis Event Note - Evaluation Sepsis Screening Result: No Definite Risk - Focused Exam Vital Signs: Vital Signs Temp Pulse Resp BP Pulse Ox Pulse Ox Pulse Ox 04/21/21 13:47 92 L 04/21/21 13:33 94 L 04/21/21 11:49 36.3 C 76 21 H 121/57 L 91 L 04/21/21 08:00 36.8 C 20 99/44 L 83 L 04/21/21 04:15 91 L 04/21/21 04:00 36.7 C 75 20 97/43 L 92 L 04/21/21 03:00 91 L - Problem List Review Problem List Initiated/Reviewed/Updated: Yes - My Orders Last 24 Hours: My Active Orders 04/21/21 09:00 Enoxaparin [Lovenox] 40 mg SUBCUT DAILY 04/21/21 13:55 LORazepam [Ativan ORAL Concentrate 1MG/0.5 ML U/D] 0.25 mg PO Q2H PRN 04/21/21 13:55 Morphine [Morphine 10 MG/0.5 ML Oral Syringe] 5 mg PO Q2H PRN 04/21/21 14:00 Baricitinib [Olumiant] 4 mg PO DAILY 04/22/21 05:00 CBC W/O DIFF,HEMOGRAM [HEME] Timed (1) COMPREHENSIVE METABOLIC PN,CMP [CHEM] Timed CRP [C-REACTIVE PROTEIN] [CHEM] Timed D-DIMER QUANTITATIVE [COAG] Timed - Plan Plan:: ASSESSMENT AND PLAN - COVID-19 pneumonia-complicated by acute respiratory failure with hypoxia. She has not been vaccinated. Tested positive on April 10. She has increasing supplemental oxygen requirements at this time. We did discuss the use of baricitinib. She was interested. Emergency use authorization information has been provided. -Dexamethasone 6 mg daily (day 5 total, had 3 days as an outpatient) -Start baricitinib -Supplement oxygen as needed -trial of heated/high flow oxygen today -Symptomatic management of cough -Goal of negative fluid balance each day -Isolation precautions -Repeat labs tomorrow Maintenance issues - -DVT prophylaxis-enoxaparin -GI prophylaxis-not indicated -Nutrition-regular -Burrell catheter-not indicated Disposition -I anticipate discharge home after the hospital stay Primary care physician -Dr. Gildardo Barrera M.D.
[2021-04-21] MEDS: LORazepam ORAL Concentrate 1MG/0.5ML U/D PO PRN (14:22)
[2021-04-22] MEDS: guaiFENesin/Dextromethorphan 100-10 MG/5 ML Soln 10 ML Cup PO PRN ×3 (04:43→17:04)
--- NOTE | 2021-04-22 09:31 | CR ---
CHEST: Portable 04/20/2021 at 1:13 AM CLINICAL HISTORY:Hypoxia, Covid COMPARISON:2010 FINDINGS: Heart size and pulmonary vascular normal. There is a diffuse left lung infiltrate. There are some patchy right infrahilar density which may also be pneumonia. Impression: Bilateral infiltrates suggesting pneumonitis.
[2021-04-22] MEDS: LORazepam ORAL Concentrate 1MG/0.5ML U/D PO PRN ×2 (09:38→21:14)
[2021-04-22] MEDS: Enoxaparin 40 MG/0.4 ML Syringe SUBCUT SCH (09:42)
[2021-04-22] MEDS: Dexamethasone 4 MG/ML SDV IVPUSH SCH (09:56)
[2021-04-22] MEDS: Benzonatate 100 MG Cap PO PRN (13:13)
[2021-04-22] MEDS: Acetaminophen 325 MG Tab PO PRN (13:13)
--- NOTE | 2021-04-22 14:56 | PCM.PN ---
- General Info Date of Service: 04/22/21 Subjective Update: Ms. Gerardo has required increasing levels of supplemental oxygen over the last 24 hours, currently on 75% via high flow humidified delivery. She does get short of breath and desaturates with fairly minimal exertion. She was started on baricitinib yesterday but thus far has refused to take it. We did have a discussion concerning the medication today and she is agreeable to starting it today. Functional Status: Reports: Urinating - Review of Systems General: Reports: Weakness, Fatigue. Denies: Fever, Chills Pulmonary: Reports: Shortness of Breath, Cough. Denies: Sputum, Hemoptysis, Wheezing Cardiovascular: Reports: Dyspnea on Exertion. Denies: Chest Pain, Palpitations, Orthopnea, PND, Edema, Lightheadedness Gastrointestinal: Reports: No Symptoms Genitourinary: Reports: No Symptoms - Patient Data Vitals - Most Recent: Last Vital Signs Temp 98.6 F 04/22/21 12:00 Pulse 68 04/22/21 07:51 Resp 18 04/22/21 12:00 BP 101/47 L 04/22/21 12:00 Pulse Ox 94 L 04/22/21 14:32 Weight - Most Recent: 141 lb 0.017 oz I&O - Last 24 Hours: Intake & Output 04/21/21 04/22/21 04/22/21 22:59 06:59 14:59 Intake Total 240 320 Output Total 301 Balance -61 320 Lab Results Last 24 Hours: Laboratory Results - last 24 hr 04/22/21 04/22/21 04/22/21 Range/Units 05:10 05:10 05:10 WBC 6.2 (4.5-11.0) K/uL RBC 4.03 (3.30-5.50) M/uL Hgb 12.3 (12.0-15.0) g/dL Hct 35.9 L (36.0-48.0) % MCV 89 (80-98) fL MCH 31 (27-31) pg MCHC 34 (32-36) % Plt Count 189 (150-400) K/uL D-Dimer, Quantitative 754.59 H (0.0-500.0) ng/mL Sodium 133 L (140-148) mmol/L Potassium 4.3 (3.6-5.2) mmol/L Chloride 98 L (100-108) mmol/L Carbon Dioxide 24 (21-32) mmol/L Anion Gap 15.3 H (5.0-14.0) mmol/L BUN 20 H (7-18) mg/dL Creatinine 0.7 (0.6-1.0) mg/dL Est Cr Clr Drug Dosing 45.63 mL/min Estimated GFR (MDRD) > 60 (>60) Glucose 157 H (74-106) mg/dL Calcium 7.7 L (8.5-10.1) mg/dL Total Bilirubin 0.6 (0.2-1.0) mg/dL AST 68 H (15-37) U/L ALT 97 H (12-78) U/L Alkaline Phosphatase 41 L (46-116) U/L C-Reactive Protein 12.48 H (0.0-0.3) mg/dL Total Protein 4.8 L (6.4-8.2) g/dL Albumin 1.9 L (3.4-5.0) g/dL Globulin 2.9 (2.3-3.5) g/dL Albumin/Globulin Ratio 0.7 L (1.2-2.2) Med Orders - Current: Current Medications Acetaminophen (Acetaminophen 325 Mg Tab) 650 mg PO Q4H PRN PRN Reason: Pain/Fever Last Admin: 04/22/21 13:13 Dose: 650 mg Documented by: Benzonatate (Benzonatate 100 Mg Cap) 100 mg PO Q8H PRN PRN Reason: Cough Last Admin: 04/22/21 13:13 Dose: 100 mg Documented by: Dexamethasone (Dexamethasone 4 Mg/Ml Sdv) 6 mg IVPUSH Q24H [facility] Last Admin: 04/22/21 09:56 Dose: 6 mg Documented by: Enoxaparin Sodium (Enoxaparin 40 Mg/0.4 Ml Syringe) 40 mg SUBCUT DAILY [facility] Last Admin: 04/22/21 09:42 Dose: 40 mg Documented by: Guaifenesin/Dextromethorphan (Guaifenesin/Dextromethorphan 100-10 Mg/5 Ml Soln 10 Ml Cup) 10 ml PO Q4H PRN PRN Reason: Cough Last Admin: 04/22/21 09:38 Dose: 10 ml Documented by: Lorazepam (Lorazepam Oral Concentrate 1mg/0.5ml U/D) 0.25 mg PO Q2H PRN PRN Reason: Anxiety Last Admin: 04/22/21 09:38 Dose: 0.25 mg Documented by: Melatonin (Melatonin 3 Mg Tab) 9 mg PO BEDTIME PRN PRN Reason: Sleep Morphine Sulfate (Morphine 10 Mg/0.5 Ml Oral Syringe) 5 mg PO Q2H PRN PRN Reason: pain/air hunger Ondansetron HCl (Ondansetron 4 Mg Tab.Dis) 4 mg PO Q4H PRN PRN Reason: Nausea/Vomiting Ondansetron HCl (Ondansetron 4 Mg/2 Ml Sdv) 4 mg IVPUSH Q4H PRN PRN Reason: Nausea/Vomiting Sodium Chloride (Sodium Chloride 0.9% 10 Ml Syringe) 10 ml FLUSH ASDIRECTED PRN PRN Reason: Keep Vein Open Discontinued Medications Enoxaparin Sodium (Enoxaparin 80 Mg/0.8 Ml Syringe) 70 mg SUBCUT Q12H [facility] Last Admin: 04/20/21 03:34 Dose: 70 mg Documented by: Sodium Chloride (Sodium Chloride 0.9% 10 Ml Syringe) 10 ml FLUSH ASDIRECTED PRN PRN Reason: Keep Vein Open Last Admin: 04/20/21 00:51 Dose: 10 ml Documented by: - Exam Quality Assessment: Supplemental Oxygen, DVT Prophylaxis General: Alert, Oriented, Cooperative, Moderate Distress Lungs: Crackles, Wheezing. No: Rales, Rhonchi Cardiovascular: Regular Rate, Regular Rhythm, No Murmurs GI/Abdominal Exam: Soft, Non-Tender, No Organomegaly, No Distention Extremities: Non-Tender, No Pedal Edema - Patient Data Lab Results Last 24 hrs: Laboratory Results - last 24 hr 04/22/21 04/22/21 04/22/21 Range/Units 05:10 05:10 05:10 WBC 6.2 (4.5-11.0) K/uL RBC 4.03 (3.30-5.50) M/uL Hgb 12.3 (12.0-15.0) g/dL Hct 35.9 L (36.0-48.0) % MCV 89 (80-98) fL MCH 31 (27-31) pg MCHC 34 (32-36) % Plt Count 189 (150-400) K/uL D-Dimer, Quantitative 754.59 H (0.0-500.0) ng/mL Sodium 133 L (140-148) mmol/L Potassium 4.3 (3.6-5.2) mmol/L Chloride 98 L (100-108) mmol/L Carbon Dioxide 24 (21-32) mmol/L Anion Gap 15.3 H (5.0-14.0) mmol/L BUN 20 H (7-18) mg/dL Creatinine 0.7 (0.6-1.0) mg/dL Est Cr Clr Drug Dosing 45.63 mL/min Estimated GFR (MDRD) > 60 (>60) Glucose 157 H (74-106) mg/dL Calcium 7.7 L (8.5-10.1) mg/dL Total Bilirubin 0.6 (0.2-1.0) mg/dL AST 68 H (15-37) U/L ALT 97 H (12-78) U/L Alkaline Phosphatase 41 L (46-116) U/L C-Reactive Protein 12.48 H (0.0-0.3) mg/dL Total Protein 4.8 L (6.4-8.2) g/dL Albumin 1.9 L (3.4-5.0) g/dL Globulin 2.9 (2.3-3.5) g/dL Albumin/Globulin Ratio 0.7 L (1.2-2.2) Result Diagrams: 04/22/21 05:10 04/22/21 05:10 Sepsis Event Note - Evaluation Sepsis Screening Result: Possible Sepsis Risk - Focused Exam Vital Signs: Vital Signs Temp Temp Pulse Resp BP Pulse Ox 04/22/21 14:32 94 L 04/22/21 12:00 98.6 F 18 101/47 L 87 L 04/22/21 07:51 98.6 F 68 18 114/45 L 90 L 04/22/21 06:49 92 L 04/22/21 04:00 98.6 F 62 24 H 104/48 L 92 L - Problem List Review Problem List Initiated/Reviewed/Updated: Yes - My Orders Last 24 Hours: My Active Orders 04/22/21 15:00 Baricitinib [Olumiant] 4 mg PO DAILY - Plan Plan:: ASSESSMENT AND PLAN - COVID-19 pneumonia-complicated by acute respiratory failure with hypoxia. She has not been vaccinated. Tested positive on April 10. She has increasing supplemental oxygen requirements at this time. We did discuss the use of baricitinib. She was interested. Emergency use authorization information has been provided. -Dexamethasone 6 mg daily (day 6 total, had 3 days as an outpatient) -Start baricitinib today, today is day 1 of 14 -Supplement oxygen as needed -trial of heated/high flow oxygen today -Symptomatic management of cough -Goal of negative fluid balance each day -Isolation precautions -Repeat labs tomorrow Maintenance issues - -DVT prophylaxis-enoxaparin -GI prophylaxis-not indicated -Nutrition-regular -Burrell catheter-not indicated Disposition -I anticipate discharge home after the hospital stay Primary care physician -Dr. Ewing
[2021-04-23] MEDS: Enoxaparin 40 MG/0.4 ML Syringe SUBCUT SCH (08:08)
[2021-04-23] MEDS: Dexamethasone 4 MG/ML SDV IVPUSH SCH (08:08)
--- NOTE | 2021-04-23 11:11 | PCM.PN ---
- General Info Date of Service: 04/23/21 Subjective Update: Ms. Gerardo has remained stable over the last 24 hours. Oxygen requirements are about what they had been yesterday. She denies improvement but also feels that her respiratory situation has not necessarily worsened. Functional Status: Reports: Urinating - Review of Systems General: Reports: Weakness, Fatigue. Denies: Fever, Chills Pulmonary: Reports: Shortness of Breath, Cough. Denies: Pleuritic Chest Pain, Sputum, Hemoptysis, Wheezing Cardiovascular: Reports: Dyspnea on Exertion. Denies: Chest Pain, Palpitations, Orthopnea, PND, Edema, Lightheadedness Gastrointestinal: Reports: No Symptoms - Patient Data Vitals - Most Recent: Last Vital Signs Temp 96.6 F L 04/23/21 08:00 Pulse 73 04/23/21 08:00 Resp 20 04/23/21 08:00 BP 99/54 L 04/23/21 08:00 Pulse Ox 88 L 04/23/21 08:05 Weight - Most Recent: 141 lb 0.017 oz I&O - Last 24 Hours: Intake & Output 04/22/21 04/23/21 04/23/21 22:59 06:59 14:59 Intake Total 600 Output Total 1 Balance 599 Med Orders - Current: Current Medications Acetaminophen (Acetaminophen 325 Mg Tab) 650 mg PO Q4H PRN PRN Reason: Pain/Fever Last Admin: 04/22/21 13:13 Dose: 650 mg Documented by: Benzonatate (Benzonatate 100 Mg Cap) 100 mg PO Q8H PRN PRN Reason: Cough Last Admin: 04/22/21 13:13 Dose: 100 mg Documented by: Dexamethasone (Dexamethasone 4 Mg/Ml Sdv) 6 mg IVPUSH Q24H [facility] Last Admin: 04/23/21 08:08 Dose: 6 mg Documented by: Enoxaparin Sodium (Enoxaparin 40 Mg/0.4 Ml Syringe) 40 mg SUBCUT DAILY [facility] Last Admin: 04/23/21 08:08 Dose: 40 mg Documented by: Guaifenesin/Dextromethorphan (Guaifenesin/Dextromethorphan 100-10 Mg/5 Ml Soln 10 Ml Cup) 10 ml PO Q4H PRN PRN Reason: Cough Last Admin: 04/22/21 17:04 Dose: 10 ml Documented by: Lorazepam (Lorazepam Oral Concentrate 1mg/0.5ml U/D) 0.25 mg PO Q2H PRN PRN Reason: Anxiety Last Admin: 04/22/21 21:14 Dose: 0.25 mg Documented by: Melatonin (Melatonin 3 Mg Tab) 9 mg PO BEDTIME PRN PRN Reason: Sleep Morphine Sulfate (Morphine 10 Mg/0.5 Ml Oral Syringe) 5 mg PO Q2H PRN PRN Reason: pain/air hunger Ondansetron HCl (Ondansetron 4 Mg Tab.Dis) 4 mg PO Q4H PRN PRN Reason: Nausea/Vomiting Ondansetron HCl (Ondansetron 4 Mg/2 Ml Sdv) 4 mg IVPUSH Q4H PRN PRN Reason: Nausea/Vomiting Sodium Chloride (Sodium Chloride 0.9% 10 Ml Syringe) 10 ml FLUSH ASDIRECTED PRN PRN Reason: Keep Vein Open Discontinued Medications Enoxaparin Sodium (Enoxaparin 80 Mg/0.8 Ml Syringe) 70 mg SUBCUT Q12H [facility] Last Admin: 04/20/21 03:34 Dose: 70 mg Documented by: Sodium Chloride (Sodium Chloride 0.9% 10 Ml Syringe) 10 ml FLUSH ASDIRECTED PRN PRN Reason: Keep Vein Open Last Admin: 04/20/21 00:51 Dose: 10 ml Documented by: - Exam Quality Assessment: Supplemental Oxygen, DVT Prophylaxis General: Alert, Oriented, Cooperative, Moderate Distress Lungs: Crackles. No: Rales, Rhonchi, Wheezing Cardiovascular: Regular Rate, Regular Rhythm, No Murmurs GI/Abdominal Exam: Soft, Non-Tender, No Organomegaly, No Distention Extremities: Non-Tender, No Pedal Edema - Patient Data Result Diagrams: 04/22/21 05:10 04/22/21 05:10 Sepsis Event Note - Evaluation Sepsis Screening Result: Possible Sepsis Risk - Focused Exam Vital Signs: Vital Signs Temp Temp Pulse Resp BP Pulse Ox 04/23/21 08:05 88 L 04/23/21 08:00 96.6 F L 73 20 99/54 L 90 L 04/23/21 03:16 96.6 F L 70 25 H 112/46 L 92 L 04/23/21 01:00 98 04/22/21 23:52 96.6 F L 78 20 101/62 89 L - Problem List Review Problem List Initiated/Reviewed/Updated: Yes - My Orders Last 24 Hours: My Active Orders 04/22/21 15:00 Baricitinib [Olumiant] 4 mg PO DAILY 04/24/21 05:00 CBC WITH AUTO DIFF [HEME] Timed COMPREHENSIVE METABOLIC PN,CMP [CHEM] Timed 04/24/21 05:11 CRP [C-REACTIVE PROTEIN] [CHEM] AM D Dimer [D-DIMER QUANTITATIVE] [COAG] AM - Plan Plan:: ASSESSMENT AND PLAN - COVID-19 pneumonia-complicated by acute respiratory failure with hypoxia. She has not been vaccinated. Tested positive on April 10. Respiratory status stable over the last 24 hours, continues to require high flow oxygen -Dexamethasone 6 mg daily (day 7 total, had 3 days as an outpatient) -Baricitinib 4 mg daily, today is day 2 of 14 -heated/high flow oxygen -Symptomatic management of cough -Goal of negative fluid balance each day -Isolation precautions -Repeat labs tomorrow Maintenance issues - -DVT prophylaxis-enoxaparin -GI prophylaxis-not indicated -Nutrition-regular -Burrell catheter-not indicated Disposition -I anticipate discharge home after the hospital stay Primary care physician -Dr. Ewing
[2021-04-23] MEDS: Melatonin 3 MG Tab PO PRN (21:59)
[2021-04-24] MEDS: Morphine 10 MG/0.5 ML Oral Syringe PO PRN ×2 (01:19→08:38)
[2021-04-24] MEDS: LORazepam ORAL Concentrate 1MG/0.5ML U/D PO PRN ×2 (03:20→08:37)
[2021-04-24] MEDS: Dexamethasone 4 MG/ML SDV IVPUSH SCH (08:25)
[2021-04-24] MEDS: Enoxaparin 40 MG/0.4 ML Syringe SUBCUT SCH (08:25)
--- NOTE | 2021-04-24 13:40 | PCM.PN ---
- General Info Date of Service: 04/24/21 Subjective Update: Ms. Gerardo continues to require high flow humidified oxygen. Oxygen requirements have stayed relatively stable over the past 2 days. She becomes short of breath and desaturates with minimal activity. Functional Status: Reports: Urinating - Review of Systems General: Reports: Weakness, Fatigue. Denies: Fever, Chills Pulmonary: Reports: Shortness of Breath, Cough. Denies: Pleuritic Chest Pain, Sputum, Hemoptysis, Wheezing Cardiovascular: Reports: Dyspnea on Exertion. Denies: Chest Pain, Palpitations, Orthopnea, PND, Edema, Lightheadedness Gastrointestinal: Reports: No Symptoms Genitourinary: Reports: No Symptoms - Patient Data Vitals - Most Recent: Last Vital Signs Temp 97.8 F 04/24/21 12:28 Pulse 90 04/24/21 12:28 Resp 24 H 04/24/21 12:28 BP 114/46 L 04/24/21 12:28 Pulse Ox 89 L 04/24/21 13:23 Weight - Most Recent: 141 lb 0.017 oz I&O - Last 24 Hours: Intake & Output 04/23/21 04/24/21 04/24/21 22:59 06:59 14:59 Intake Total 260 Output Total 550 Balance 260 -550 Lab Results Last 24 Hours: Laboratory Results - last 24 hr 04/24/21 04/24/21 04/24/21 Range/Units 05:40 05:40 05:40 WBC 9.1 (4.5-11.0) K/uL RBC 3.85 (3.30-5.50) M/uL Hgb 11.9 L (12.0-15.0) g/dL Hct 34.5 L (36.0-48.0) % MCV 90 (80-98) fL MCH 31 (27-31) pg MCHC 35 (32-36) % Plt Count 249 (150-400) K/uL Add Manual Diff Yes Neutrophils % (Manual) 88 H (36-66) % Band Neutrophils % 2 L (5-11) % Lymphocytes % (Manual) 6 L (24-44) % Monocytes % (Manual) 1 L (2-6) % Eosinophils % (Manual) 0 L (2-4) % Basophils % (Manual) 0 (0-1) % D-Dimer, Quantitative 1675.62 H (0.0-500.0) ng/mL Sodium 133 L (140-148) mmol/L Potassium 4.5 (3.6-5.2) mmol/L Chloride 98 L (100-108) mmol/L Carbon Dioxide 26 (21-32) mmol/L Anion Gap 13.5 (5.0-14.0) mmol/L BUN 18 (7-18) mg/dL Creatinine 0.7 (0.6-1.0) mg/dL Est Cr Clr Drug Dosing 45.23 mL/min Estimated GFR (MDRD) > 60 (>60) Glucose 78 (74-106) mg/dL Calcium 7.6 L (8.5-10.1) mg/dL Total Bilirubin 0.7 (0.2-1.0) mg/dL AST 53 H (15-37) U/L ALT 83 H (12-78) U/L Alkaline Phosphatase 40 L (46-116) U/L C-Reactive Protein (0.0-0.3) mg/dL Total Protein 4.5 L (6.4-8.2) g/dL Albumin 1.8 L (3.4-5.0) g/dL Globulin 2.7 (2.3-3.5) g/dL Albumin/Globulin Ratio 0.7 L (1.2-2.2) 04/24/21 Range/Units 05:40 WBC (4.5-11.0) K/uL RBC (3.30-5.50) M/uL Hgb (12.0-15.0) g/dL Hct (36.0-48.0) % MCV (80-98) fL MCH (27-31) pg MCHC (32-36) % Plt Count (150-400) K/uL Add Manual Diff Neutrophils % (Manual) (36-66) % Band Neutrophils % (5-11) % Lymphocytes % (Manual) (24-44) % Monocytes % (Manual) (2-6) % Eosinophils % (Manual) (2-4) % Basophils % (Manual) (0-1) % D-Dimer, Quantitative (0.0-500.0) ng/mL Sodium (140-148) mmol/L Potassium (3.6-5.2) mmol/L Chloride (100-108) mmol/L Carbon Dioxide (21-32) mmol/L Anion Gap (5.0-14.0) mmol/L BUN (7-18) mg/dL Creatinine (0.6-1.0) mg/dL Est Cr Clr Drug Dosing mL/min Estimated GFR (MDRD) (>60) Glucose (74-106) mg/dL Calcium (8.5-10.1) mg/dL Total Bilirubin (0.2-1.0) mg/dL AST (15-37) U/L ALT (12-78) U/L Alkaline Phosphatase (46-116) U/L C-Reactive Protein 6.15 H (0.0-0.3) mg/dL Total Protein (6.4-8.2) g/dL Albumin (3.4-5.0) g/dL Globulin (2.3-3.5) g/dL Albumin/Globulin Ratio (1.2-2.2) Med Orders - Current: Current Medications Acetaminophen (Acetaminophen 325 Mg Tab) 650 mg PO Q4H PRN PRN Reason: Pain/Fever Last Admin: 04/22/21 13:13 Dose: 650 mg Documented by: Benzonatate (Benzonatate 100 Mg Cap) 100 mg PO Q8H PRN PRN Reason: Cough Last Admin: 04/22/21 13:13 Dose: 100 mg Documented by: Dexamethasone (Dexamethasone 4 Mg/Ml Sdv) 6 mg IVPUSH Q24H [facility] Last Admin: 04/24/21 08:25 Dose: 6 mg Documented by: Enoxaparin Sodium (Enoxaparin 40 Mg/0.4 Ml Syringe) 40 mg SUBCUT DAILY [facility] Last Admin: 04/24/21 08:25 Dose: 40 mg Documented by: Guaifenesin/Dextromethorphan (Guaifenesin/Dextromethorphan 100-10 Mg/5 Ml Soln 10 Ml Cup) 10 ml PO Q4H PRN PRN Reason: Cough Last Admin: 04/22/21 17:04 Dose: 10 ml Documented by: Lorazepam (Lorazepam Oral Concentrate 1mg/0.5ml U/D) 0.25 mg PO Q2H PRN PRN Reason: Anxiety Last Admin: 04/24/21 08:37 Dose: 0.25 mg Documented by: Melatonin (Melatonin 3 Mg Tab) 9 mg PO BEDTIME PRN PRN Reason: Sleep Last Admin: 04/23/21 21:59 Dose: 9 mg Documented by: Morphine Sulfate (Morphine 10 Mg/0.5 Ml Oral Syringe) 5 mg PO Q2H PRN PRN Reason: pain/air hunger Last Admin: 04/24/21 08:38 Dose: 5 mg Documented by: Ondansetron HCl (Ondansetron 4 Mg Tab.Dis) 4 mg PO Q4H PRN PRN Reason: Nausea/Vomiting Ondansetron HCl (Ondansetron 4 Mg/2 Ml Sdv) 4 mg IVPUSH Q4H PRN PRN Reason: Nausea/Vomiting Sodium Chloride (Sodium Chloride 0.9% 10 Ml Syringe) 10 ml FLUSH ASDIRECTED PRN PRN Reason: Keep Vein Open Discontinued Medications Enoxaparin Sodium (Enoxaparin 80 Mg/0.8 Ml Syringe) 70 mg SUBCUT Q12H [facility] Last Admin: 04/20/21 03:34 Dose: 70 mg Documented by: Sodium Chloride (Sodium Chloride 0.9% 10 Ml Syringe) 10 ml FLUSH ASDIRECTED PRN PRN Reason: Keep Vein Open Last Admin: 04/20/21 00:51 Dose: 10 ml Documented by: - Exam Quality Assessment: Supplemental Oxygen, DVT Prophylaxis General: Alert, Oriented, Cooperative, Moderate Distress Lungs: Rales. No: Rhonchi, Wheezing Cardiovascular: Regular Rate, Regular Rhythm, No Murmurs GI/Abdominal Exam: Soft, Non-Tender, No Organomegaly, No Distention Extremities: Non-Tender, No Pedal Edema - Patient Data Lab Results Last 24 hrs: Laboratory Results - last 24 hr 04/24/21 04/24/21 04/24/21 Range/Units 05:40 05:40 05:40 WBC 9.1 (4.5-11.0) K/uL RBC 3.85 (3.30-5.50) M/uL Hgb 11.9 L (12.0-15.0) g/dL Hct 34.5 L (36.0-48.0) % MCV 90 (80-98) fL MCH 31 (27-31) pg MCHC 35 (32-36) % Plt Count 249 (150-400) K/uL Add Manual Diff Yes Neutrophils % (Manual) 88 H (36-66) % Band Neutrophils % 2 L (5-11) % Lymphocytes % (Manual) 6 L (24-44) % Monocytes % (Manual) 1 L (2-6) % Eosinophils % (Manual) 0 L (2-4) % Basophils % (Manual) 0 (0-1) % D-Dimer, Quantitative 1675.62 H (0.0-500.0) ng/mL Sodium 133 L (140-148) mmol/L Potassium 4.5 (3.6-5.2) mmol/L Chloride 98 L (100-108) mmol/L Carbon Dioxide 26 (21-32) mmol/L Anion Gap 13.5 (5.0-14.0) mmol/L BUN 18 (7-18) mg/dL Creatinine 0.7 (0.6-1.0) mg/dL Est Cr Clr Drug Dosing 45.23 mL/min Estimated GFR (MDRD) > 60 (>60) Glucose 78 (74-106) mg/dL Calcium 7.6 L (8.5-10.1) mg/dL Total Bilirubin 0.7 (0.2-1.0) mg/dL AST 53 H (15-37) U/L ALT 83 H (12-78) U/L Alkaline Phosphatase 40 L (46-116) U/L C-Reactive Protein (0.0-0.3) mg/dL Total Protein 4.5 L (6.4-8.2) g/dL Albumin 1.8 L (3.4-5.0) g/dL Globulin 2.7 (2.3-3.5) g/dL Albumin/Globulin Ratio 0.7 L (1.2-2.2) 04/24/21 Range/Units 05:40 WBC (4.5-11.0) K/uL RBC (3.30-5.50) M/uL Hgb (12.0-15.0) g/dL Hct (36.0-48.0) % MCV (80-98) fL MCH (27-31) pg MCHC (32-36) % Plt Count (150-400) K/uL Add Manual Diff Neutrophils % (Manual) (36-66) % Band Neutrophils % (5-11) % Lymphocytes % (Manual) (24-44) % Monocytes % (Manual) (2-6) % Eosinophils % (Manual) (2-4) % Basophils % (Manual) (0-1) % D-Dimer, Quantitative (0.0-500.0) ng/mL Sodium (140-148) mmol/L Potassium (3.6-5.2) mmol/L Chloride (100-108) mmol/L Carbon Dioxide (21-32) mmol/L Anion Gap (5.0-14.0) mmol/L BUN (7-18) mg/dL Creatinine (0.6-1.0) mg/dL Est Cr Clr Drug Dosing mL/min Estimated GFR (MDRD) (>60) Glucose (74-106) mg/dL Calcium (8.5-10.1) mg/dL Total Bilirubin (0.2-1.0) mg/dL AST (15-37) U/L ALT (12-78) U/L Alkaline Phosphatase (46-116) U/L C-Reactive Protein 6.15 H (0.0-0.3) mg/dL Total Protein (6.4-8.2) g/dL Albumin (3.4-5.0) g/dL Globulin (2.3-3.5) g/dL Albumin/Globulin Ratio (1.2-2.2) Result Diagrams: 04/24/21 05:40 04/24/21 05:40 Sepsis Event Note - Evaluation Sepsis Screening Result: Possible Sepsis Risk - Focused Exam Vital Signs: Vital Signs Temp Pulse Resp BP Pulse Ox 04/24/21 13:23 89 L 04/24/21 13:15 91 L 04/24/21 12:28 97.8 F 90 24 H 114/46 L 93 L 04/24/21 08:40 97.3 F 78 26 H 108/36 L 94 L 04/24/21 07:01 93 L 04/24/21 03:25 98.5 F 90 26 H 113/44 L 93 L - Problem List Review Problem List Initiated/Reviewed/Updated: Yes - Plan Plan:: ASSESSMENT AND PLAN - COVID-19 pneumonia-complicated by acute respiratory failure with hypoxia. She has not been vaccinated. Tested positive on April 10. Respiratory status stable over the last 24 hours, continues to require high flow oxygen -Dexamethasone 6 mg daily (day 8 total, had 3 days as an outpatient) -Baricitinib 4 mg daily, today is day 3 of 14 -heated/high flow oxygen -Symptomatic management of cough -Goal of negative fluid balance each day -Isolation precautions -Repeat labs tomorrow Maintenance issues - -DVT prophylaxis-enoxaparin -GI prophylaxis-not indicated -Nutrition-regular -Burrell catheter-not indicated Disposition -I anticipate discharge home after the hospital stay Primary care physician -Dr. Ewing
[2021-04-24] MEDS: Acetaminophen 325 MG Tab PO PRN (17:54)
[2021-04-25] MEDS: LORazepam ORAL Concentrate 1MG/0.5ML U/D PO PRN ×3 (04:47→21:54)
[2021-04-25] MEDS: Morphine 10 MG/0.5 ML Oral Syringe PO PRN ×2 (08:41→18:01)
[2021-04-25] MEDS: Enoxaparin 40 MG/0.4 ML Syringe SUBCUT SCH (08:45)
[2021-04-25] MEDS: Dexamethasone 4 MG/ML SDV IVPUSH SCH (08:49)
[2021-04-25] MEDS: Acetaminophen 325 MG Tab PO PRN ×2 (11:05→21:55)
[2021-04-25] MEDS: guaiFENesin/Dextromethorphan 100-10 MG/5 ML Soln 10 ML Cup PO PRN (11:05)
--- NOTE | 2021-04-25 17:42 | PCM.PN ---
- General Info Date of Service: 04/25/21 Subjective Update: Ms. Gerardo require high flow humidified oxygen to maintain adequate saturations. She does desaturate with minimal activity and requires increased supplemental o xygen to recover. Level of respiratory compromise appears to be stable over the past several days. She has remained afebrile and otherwise hemodynamically stable. - Review of Systems General: Reports: Weakness, Fatigue. Denies: Fever, Chills Pulmonary: Reports: Shortness of Breath, Cough. Denies: Pleuritic Chest Pain, Sputum, Hemoptysis, Wheezing Cardiovascular: Reports: Dyspnea on Exertion. Denies: Chest Pain, Palpitations, Orthopnea, PND, Edema, Lightheadedness Gastrointestinal: Reports: No Symptoms - Patient Data Vitals - Most Recent: Last Vital Signs Temp 97.8 F 04/25/21 15:44 Pulse 76 04/25/21 15:44 Resp 26 H 04/25/21 15:44 BP 107/34 L 04/25/21 15:44 Pulse Ox 97 04/25/21 15:44 Weight - Most Recent: 141 lb 0.017 oz I&O - Last 24 Hours: Intake & Output 04/25/21 04/25/21 04/25/21 06:59 14:59 22:59 Output Total 400 Balance -400 Med Orders - Current: Current Medications Acetaminophen (Acetaminophen 325 Mg Tab) 650 mg PO Q4H PRN PRN Reason: Pain/Fever Last Admin: 04/25/21 11:05 Dose: 650 mg Documented by: Benzonatate (Benzonatate 100 Mg Cap) 100 mg PO Q8H PRN PRN Reason: Cough Last Admin: 04/22/21 13:13 Dose: 100 mg Documented by: Dexamethasone (Dexamethasone 4 Mg/Ml Sdv) 6 mg IVPUSH Q24H [facility] Last Admin: 04/25/21 08:49 Dose: 6 mg Documented by: Enoxaparin Sodium (Enoxaparin 40 Mg/0.4 Ml Syringe) 40 mg SUBCUT DAILY [facility] Last Admin: 04/25/21 08:45 Dose: 40 mg Documented by: Guaifenesin/Dextromethorphan (Guaifenesin/Dextromethorphan 100-10 Mg/5 Ml Soln 10 Ml Cup) 10 ml PO Q4H PRN PRN Reason: Cough Last Admin: 04/25/21 11:05 Dose: 10 ml Documented by: Lorazepam (Lorazepam Oral Concentrate 1mg/0.5ml U/D) 0.25 mg PO Q2H PRN PRN Reason: Anxiety Last Admin: 04/25/21 11:20 Dose: 0.25 mg Documented by: Melatonin (Melatonin 3 Mg Tab) 9 mg PO BEDTIME PRN PRN Reason: Sleep Last Admin: 04/23/21 21:59 Dose: 9 mg Documented by: Morphine Sulfate (Morphine 10 Mg/0.5 Ml Oral Syringe) 5 mg PO Q2H PRN PRN Reason: pain/air hunger Last Admin: 04/25/21 08:41 Dose: 5 mg Documented by: Ondansetron HCl (Ondansetron 4 Mg Tab.Dis) 4 mg PO Q4H PRN PRN Reason: Nausea/Vomiting Ondansetron HCl (Ondansetron 4 Mg/2 Ml Sdv) 4 mg IVPUSH Q4H PRN PRN Reason: Nausea/Vomiting Sodium Chloride (Sodium Chloride 0.9% 10 Ml Syringe) 10 ml FLUSH ASDIRECTED PRN PRN Reason: Keep Vein Open Discontinued Medications Enoxaparin Sodium (Enoxaparin 80 Mg/0.8 Ml Syringe) 70 mg SUBCUT Q12H [facility] Last Admin: 04/20/21 03:34 Dose: 70 mg Documented by: Sodium Chloride (Sodium Chloride 0.9% 10 Ml Syringe) 10 ml FLUSH ASDIRECTED PRN PRN Reason: Keep Vein Open Last Admin: 04/20/21 00:51 Dose: 10 ml Documented by: - Exam Quality Assessment: DVT Prophylaxis General: Alert, Oriented, Cooperative, Moderate Distress Lungs: Decreased Breath Sounds, Rales. No: Crackles, Rhonchi, Wheezing Cardiovascular: Regular Rate, Regular Rhythm, No Murmurs GI/Abdominal Exam: Soft, Non-Tender, No Organomegaly, No Distention Extremities: Non-Tender, No Pedal Edema - Patient Data Result Diagrams: 04/24/21 05:40 04/24/21 05:40 Sepsis Event Note - Evaluation Sepsis Screening Result: No Definite Risk - Focused Exam Vital Signs: Vital Signs Temp Pulse Resp BP Pulse Ox 04/25/21 15:44 97.8 F 76 26 H 107/34 L 97 04/25/21 08:00 98.6 F 86 24 H 116/43 L 94 L 04/25/21 07:30 92 L - Problem List Review Problem List Initiated/Reviewed/Updated: Yes - My Orders Last 24 Hours: My Active Orders 04/26/21 05:00 CBC WITH AUTO DIFF [HEME] Timed COMPREHENSIVE METABOLIC PN,CMP [CHEM] Timed 04/26/21 05:11 CRP [C-REACTIVE PROTEIN] [CHEM] AM D Dimer [D-DIMER QUANTITATIVE] [COAG] AM - Plan Plan:: ASSESSMENT AND PLAN - COVID-19 pneumonia-complicated by acute respiratory failure with hypoxia. She has not been vaccinated. Tested positive on April 10. Respiratory status stable over the last 24 hours, continues to require high flow oxygen and desaturates with minimal activity. -Dexamethasone 6 mg daily (day 9 total, had 3 days as an outpatient) -Baricitinib 4 mg daily, today is day 4 of -heated/high flow oxygen -Symptomatic management of cough -Goal of negative fluid balance each day -Isolation precautions -Repeat labs tomorrow Maintenance issues - -DVT prophylaxis-enoxaparin -GI prophylaxis-not indicated -Nutrition-regular -Burrell catheter-not indicated Disposition -I anticipate discharge home after the hospital stay Primary care physician -Dr. Ewing
[2021-04-25] MEDS: Melatonin 3 MG Tab PO PRN (21:55)
[2021-04-26] MEDS: Morphine 10 MG/0.5 ML Oral Syringe PO PRN ×2 (05:31→19:25)
[2021-04-26] MEDS: Acetaminophen 325 MG Tab PO PRN ×2 (10:22→22:12)
[2021-04-26] MEDS: Dexamethasone 4 MG/ML SDV IVPUSH SCH (10:23)
[2021-04-26] MEDS: Enoxaparin 40 MG/0.4 ML Syringe SUBCUT SCH (10:25)
[2021-04-26] MEDS: LORazepam ORAL Concentrate 1MG/0.5ML U/D PO PRN ×2 (11:16→22:12)
--- NOTE | 2021-04-26 16:39 | PCM.PN ---
- General Info Date of Service: 04/26/21 Subjective Update: Ms. Gerardo continues to require high flow supplemental oxygen to maintain adequate saturations. She did much better last night and her supplemental oxygen was decreased, this morning is requiring higher levels again. Cough has become somewhat productive. Functional Status: Reports: Urinating. Denies: Tolerating Diet - Review of Systems General: Reports: Weakness, Fatigue. Denies: Fever, Chills Pulmonary: Reports: Shortness of Breath, Cough, Sputum. Denies: Pleuritic Chest Pain, Hemoptysis, Wheezing Cardiovascular: Reports: Dyspnea on Exertion. Denies: Chest Pain, Palpitations, Orthopnea, PND, Edema, Lightheadedness Gastrointestinal: Reports: No Symptoms Genitourinary: Reports: No Symptoms - Patient Data Vitals - Most Recent: Last Vital Signs Temp 97.8 F 04/26/21 15:44 Pulse 83 04/26/21 15:44 Resp 20 04/26/21 15:44 BP 101/54 L 04/26/21 15:44 Pulse Ox 85 L 04/26/21 15:44 Weight - Most Recent: 141 lb 0.017 oz Lab Results Last 24 Hours: Laboratory Results - last 24 hr 04/26/21 04/26/21 04/26/21 Range/Units 05:16 05:16 05:16 WBC 7.5 (4.5-11.0) K/uL RBC 3.67 (3.30-5.50) M/uL Hgb 11.5 L (12.0-15.0) g/dL Hct 33.1 L (36.0-48.0) % MCV 90 (80-98) fL MCH 31 (27-31) pg MCHC 35 (32-36) % Plt Count 264 (150-400) K/uL Add Manual Diff Yes Neutrophils % (Manual) 92 H (36-66) % Lymphocytes % (Manual) 6 L (24-44) % Monocytes % (Manual) 1 L (2-6) % Eosinophils % (Manual) 0 L (2-4) % Basophils % (Manual) 1 (0-1) % D-Dimer, Quantitative 2624.40 H (0.0-500.0) ng/mL Sodium 135 L (140-148) mmol/L Potassium 4.6 (3.6-5.2) mmol/L Chloride 100 (100-108) mmol/L Carbon Dioxide 28 (21-32) mmol/L Anion Gap 11.6 (5.0-14.0) mmol/L BUN 22 H (7-18) mg/dL Creatinine 0.6 (0.6-1.0) mg/dL Est Cr Clr Drug Dosing 52.77 mL/min Estimated GFR (MDRD) > 60 (>60) Glucose 116 H (74-106) mg/dL Calcium 7.8 L (8.5-10.1) mg/dL Total Bilirubin 0.6 (0.2-1.0) mg/dL AST 23 (15-37) U/L ALT 58 (12-78) U/L Alkaline Phosphatase 46 (46-116) U/L C-Reactive Protein (0.0-0.3) mg/dL Total Protein 4.7 L (6.4-8.2) g/dL Albumin 1.6 L (3.4-5.0) g/dL Globulin 3.1 (2.3-3.5) g/dL Albumin/Globulin Ratio 0.5 L (1.2-2.2) 04/26/21 Range/Units 05:16 WBC (4.5-11.0) K/uL RBC (3.30-5.50) M/uL Hgb (12.0-15.0) g/dL Hct (36.0-48.0) % MCV (80-98) fL MCH (27-31) pg MCHC (32-36) % Plt Count (150-400) K/uL Add Manual Diff Neutrophils % (Manual) (36-66) % Lymphocytes % (Manual) (24-44) % Monocytes % (Manual) (2-6) % Eosinophils % (Manual) (2-4) % Basophils % (Manual) (0-1) % D-Dimer, Quantitative (0.0-500.0) ng/mL Sodium (140-148) mmol/L Potassium (3.6-5.2) mmol/L Chloride (100-108) mmol/L Carbon Dioxide (21-32) mmol/L Anion Gap (5.0-14.0) mmol/L BUN (7-18) mg/dL Creatinine (0.6-1.0) mg/dL Est Cr Clr Drug Dosing mL/min Estimated GFR (MDRD) (>60) Glucose (74-106) mg/dL Calcium (8.5-10.1) mg/dL Total Bilirubin (0.2-1.0) mg/dL AST (15-37) U/L ALT (12-78) U/L Alkaline Phosphatase (46-116) U/L C-Reactive Protein 18.97 H (0.0-0.3) mg/dL Total Protein (6.4-8.2) g/dL Albumin (3.4-5.0) g/dL Globulin (2.3-3.5) g/dL Albumin/Globulin Ratio (1.2-2.2) Med Orders - Current: Current Medications Acetaminophen (Acetaminophen 325 Mg Tab) 650 mg PO Q4H PRN PRN Reason: Pain/Fever Last Admin: 04/26/21 10:22 Dose: 650 mg Documented by: Benzonatate (Benzonatate 100 Mg Cap) 100 mg PO Q8H PRN PRN Reason: Cough Last Admin: 04/22/21 13:13 Dose: 100 mg Documented by: Dexamethasone (Dexamethasone 4 Mg/Ml Sdv) 6 mg IVPUSH Q24H [facility] Last Admin: 04/26/21 10:23 Dose: 6 mg Documented by: Enoxaparin Sodium (Enoxaparin 40 Mg/0.4 Ml Syringe) 40 mg SUBCUT DAILY [facility] Last Admin: 04/26/21 10:25 Dose: 40 mg Documented by: Guaifenesin/Dextromethorphan (Guaifenesin/Dextromethorphan 100-10 Mg/5 Ml Soln 10 Ml Cup) 10 ml PO Q4H PRN PRN Reason: Cough Last Admin: 04/25/21 11:05 Dose: 10 ml Documented by: Lorazepam (Lorazepam Oral Concentrate 1mg/0.5ml U/D) 0.25 mg PO Q2H PRN PRN Reason: Anxiety Last Admin: 04/26/21 11:16 Dose: 0.25 mg Documented by: Melatonin (Melatonin 3 Mg Tab) 9 mg PO BEDTIME PRN PRN Reason: Sleep Last Admin: 04/25/21 21:55 Dose: 9 mg Documented by: Morphine Sulfate (Morphine 10 Mg/0.5 Ml Oral Syringe) 5 mg PO Q2H PRN PRN Reason: pain/air hunger Last Admin: 04/26/21 05:31 Dose: 5 mg Documented by: Ondansetron HCl (Ondansetron 4 Mg Tab.Dis) 4 mg PO Q4H PRN PRN Reason: Nausea/Vomiting Ondansetron HCl (Ondansetron 4 Mg/2 Ml Sdv) 4 mg IVPUSH Q4H PRN PRN Reason: Nausea/Vomiting Sodium Chloride (Sodium Chloride 0.9% 10 Ml Syringe) 10 ml FLUSH ASDIRECTED PRN PRN Reason: Keep Vein Open Discontinued Medications Enoxaparin Sodium (Enoxaparin 80 Mg/0.8 Ml Syringe) 70 mg SUBCUT Q12H [facility] Last Admin: 04/20/21 03:34 Dose: 70 mg Documented by: Sodium Chloride (Sodium Chloride 0.9% 10 Ml Syringe) 10 ml FLUSH ASDIRECTED PRN PRN Reason: Keep Vein Open Last Admin: 04/20/21 00:51 Dose: 10 ml Documented by: - Exam Quality Assessment: Supplemental Oxygen, DVT Prophylaxis General: Alert, Oriented, Cooperative, Moderate Distress Lungs: Rales. No: Crackles, Rhonchi, Wheezing Cardiovascular: Regular Rate, Regular Rhythm, No Murmurs GI/Abdominal Exam: Soft, Non-Tender, No Organomegaly, No Distention Extremities: Non-Tender, No Pedal Edema - Patient Data Lab Results Last 24 hrs: Laboratory Results - last 24 hr 04/26/21 04/26/21 04/26/21 Range/Units 05:16 05:16 05:16 WBC 7.5 (4.5-11.0) K/uL RBC 3.67 (3.30-5.50) M/uL Hgb 11.5 L (12.0-15.0) g/dL Hct 33.1 L (36.0-48.0) % MCV 90 (80-98) fL MCH 31 (27-31) pg MCHC 35 (32-36) % Plt Count 264 (150-400) K/uL Add Manual Diff Yes Neutrophils % (Manual) 92 H (36-66) % Lymphocytes % (Manual) 6 L (24-44) % Monocytes % (Manual) 1 L (2-6) % Eosinophils % (Manual) 0 L (2-4) % Basophils % (Manual) 1 (0-1) % D-Dimer, Quantitative 2624.40 H (0.0-500.0) ng/mL Sodium 135 L (140-148) mmol/L Potassium 4.6 (3.6-5.2) mmol/L Chloride 100 (100-108) mmol/L Carbon Dioxide 28 (21-32) mmol/L Anion Gap 11.6 (5.0-14.0) mmol/L BUN 22 H (7-18) mg/dL Creatinine 0.6 (0.6-1.0) mg/dL Est Cr Clr Drug Dosing 52.77 mL/min Estimated GFR (MDRD) > 60 (>60) Glucose 116 H (74-106) mg/dL Calcium 7.8 L (8.5-10.1) mg/dL Total Bilirubin 0.6 (0.2-1.0) mg/dL AST 23 (15-37) U/L ALT 58 (12-78) U/L Alkaline Phosphatase 46 (46-116) U/L C-Reactive Protein (0.0-0.3) mg/dL Total Protein 4.7 L (6.4-8.2) g/dL Albumin 1.6 L (3.4-5.0) g/dL Globulin 3.1 (2.3-3.5) g/dL Albumin/Globulin Ratio 0.5 L (1.2-2.2) 04/26/21 Range/Units 05:16 WBC (4.5-11.0) K/uL RBC (3.30-5.50) M/uL Hgb (12.0-15.0) g/dL Hct (36.0-48.0) % MCV (80-98) fL MCH (27-31) pg MCHC (32-36) % Plt Count (150-400) K/uL Add Manual Diff Neutrophils % (Manual) (36-66) % Lymphocytes % (Manual) (24-44) % Monocytes % (Manual) (2-6) % Eosinophils % (Manual) (2-4) % Basophils % (Manual) (0-1) % D-Dimer, Quantitative (0.0-500.0) ng/mL Sodium (140-148) mmol/L Potassium (3.6-5.2) mmol/L Chloride (100-108) mmol/L Carbon Dioxide (21-32) mmol/L Anion Gap (5.0-14.0) mmol/L BUN (7-18) mg/dL Creatinine (0.6-1.0) mg/dL Est Cr Clr Drug Dosing mL/min Estimated GFR (MDRD) (>60) Glucose (74-106) mg/dL Calcium (8.5-10.1) mg/dL Total Bilirubin (0.2-1.0) mg/dL AST (15-37) U/L ALT (12-78) U/L Alkaline Phosphatase (46-116) U/L C-Reactive Protein 18.97 H (0.0-0.3) mg/dL Total Protein (6.4-8.2) g/dL Albumin (3.4-5.0) g/dL Globulin (2.3-3.5) g/dL Albumin/Globulin Ratio (1.2-2.2) Result Diagrams: 04/26/21 05:16 04/26/21 05:16 Sepsis Event Note - Evaluation Sepsis Screening Result: No Definite Risk - Focused Exam Vital Signs: Vital Signs Temp Pulse Resp BP Pulse Ox 04/26/21 15:44 97.8 F 83 20 101/54 L 85 L 04/26/21 12:23 90 L 04/26/21 07:36 97.8 F 73 18 121/57 L 90 L 04/26/21 07:25 96 - Problem List Review Problem List Initiated/Reviewed/Updated: Yes - Plan Plan:: ASSESSMENT AND PLAN - COVID-19 pneumonia-complicated by acute respiratory failure with hypoxia. She has not been vaccinated. Tested positive on April 10. Respiratory status stable over the last 24 hours, continues to require high flow oxygen and desaturates with minimal activity. Cough has become more productive over the last 24 hours. Both CRP and D-dimer have increased on labs obtained this morning. -Dexamethasone 6 mg daily (day 10 total, had 3 days as an outpatient) -Baricitinib 4 mg daily, today is day 5 of 14 -heated/high flow oxygen -Symptomatic management of cough -Goal of negative fluid balance each day -Isolation precautions Maintenance issues - -DVT prophylaxis-enoxaparin -GI prophylaxis-not indicated -Nutrition-regular -Burrell catheter-not indicated Disposition -I anticipate discharge home after the hospital stay Primary care physician -Dr. Ewing
[2021-04-26] MEDS: Melatonin 3 MG Tab PO PRN (22:12)
[2021-04-27] MEDS: guaiFENesin/Dextromethorphan 100-10 MG/5 ML Soln 10 ML Cup PO PRN (08:53)
[2021-04-27] MEDS: LORazepam ORAL Concentrate 1MG/0.5ML U/D PO PRN ×2 (08:53→22:00)
[2021-04-27] MEDS: Acetaminophen 325 MG Tab PO PRN ×2 (08:53→21:58)
[2021-04-27] MEDS: Enoxaparin 40 MG/0.4 ML Syringe SUBCUT SCH (08:54)
[2021-04-27] MEDS: Dexamethasone 4 MG/ML SDV IVPUSH SCH (08:54)
--- NOTE | 2021-04-27 10:57 | PCM.PN ---
- General Info Date of Service: 04/27/21 Subjective Update: Ms. Gerardo has shown signs of modest improvement, less oxygen requirements especially when supine. She continues to desaturate with very minimal activity. Appetite seems to be slowly improving, with improved intake of supplements. Functional Status: Reports: Urinating - Review of Systems General: Reports: Weakness, Fatigue. Denies: Fever, Chills Pulmonary: Reports: Shortness of Breath, Cough, Sputum. Denies: Pleuritic Chest Pain, Hemoptysis, Wheezing Cardiovascular: Reports: Dyspnea on Exertion. Denies: Chest Pain, Palpitations, Orthopnea, PND, Edema, Lightheadedness Gastrointestinal: Reports: No Symptoms Genitourinary: Reports: No Symptoms - Patient Data Vitals - Most Recent: Last Vital Signs Temp 98.4 F 04/27/21 08:00 Pulse 80 04/27/21 08:00 Resp 20 04/27/21 08:00 BP 102/50 L 04/27/21 08:00 Pulse Ox 86 L 04/27/21 08:00 Weight - Most Recent: 141 lb 0.017 oz I&O - Last 24 Hours: Intake & Output 04/26/21 04/27/21 04/27/21 22:59 06:59 14:59 Intake Total 300 Output Total 350 Balance -50 Med Orders - Current: Current Medications Acetaminophen (Acetaminophen 325 Mg Tab) 650 mg PO Q4H PRN PRN Reason: Pain/Fever Last Admin: 04/27/21 08:53 Dose: 650 mg Documented by: Benzonatate (Benzonatate 100 Mg Cap) 100 mg PO Q8H PRN PRN Reason: Cough Last Admin: 04/22/21 13:13 Dose: 100 mg Documented by: Dexamethasone (Dexamethasone 4 Mg/Ml Sdv) 6 mg IVPUSH Q24H [facility] Last Admin: 04/27/21 08:54 Dose: 6 mg Documented by: Enoxaparin Sodium (Enoxaparin 40 Mg/0.4 Ml Syringe) 40 mg SUBCUT DAILY [facility] Last Admin: 04/27/21 08:54 Dose: 40 mg Documented by: Guaifenesin/Dextromethorphan (Guaifenesin/Dextromethorphan 100-10 Mg/5 Ml Soln 10 Ml Cup) 10 ml PO Q4H PRN PRN Reason: Cough Last Admin: 04/27/21 08:53 Dose: 10 ml Documented by: Lorazepam (Lorazepam Oral Concentrate 1mg/0.5ml U/D) 0.25 mg PO Q2H PRN PRN Reason: Anxiety Last Admin: 04/27/21 08:53 Dose: 0.25 mg Documented by: Melatonin (Melatonin 3 Mg Tab) 9 mg PO BEDTIME PRN PRN Reason: Sleep Last Admin: 04/26/21 22:12 Dose: 9 mg Documented by: Morphine Sulfate (Morphine 10 Mg/0.5 Ml Oral Syringe) 5 mg PO Q2H PRN PRN Reason: pain/air hunger Last Admin: 04/26/21 19:25 Dose: 5 mg Documented by: Ondansetron HCl (Ondansetron 4 Mg Tab.Dis) 4 mg PO Q4H PRN PRN Reason: Nausea/Vomiting Ondansetron HCl (Ondansetron 4 Mg/2 Ml Sdv) 4 mg IVPUSH Q4H PRN PRN Reason: Nausea/Vomiting Sodium Chloride (Sodium Chloride 0.9% 10 Ml Syringe) 10 ml FLUSH ASDIRECTED PRN PRN Reason: Keep Vein Open Discontinued Medications Enoxaparin Sodium (Enoxaparin 80 Mg/0.8 Ml Syringe) 70 mg SUBCUT Q12H [facility] Last Admin: 04/20/21 03:34 Dose: 70 mg Documented by: Sodium Chloride (Sodium Chloride 0.9% 10 Ml Syringe) 10 ml FLUSH ASDIRECTED PRN PRN Reason: Keep Vein Open Last Admin: 04/20/21 00:51 Dose: 10 ml Documented by: - Exam Quality Assessment: Supplemental Oxygen, DVT Prophylaxis General: Alert, Oriented, Cooperative, Moderate Distress Lungs: Rales. No: Crackles, Rhonchi, Wheezing Cardiovascular: Regular Rate, Regular Rhythm, No Murmurs GI/Abdominal Exam: Soft, Non-Tender, No Organomegaly, No Distention Extremities: Non-Tender, No Pedal Edema - Patient Data Result Diagrams: 04/26/21 05:16 04/26/21 05:16 Sepsis Event Note - Evaluation Sepsis Screening Result: No Definite Risk - Focused Exam Vital Signs: Vital Signs Temp Pulse Resp BP Pulse Ox 04/27/21 08:00 98.4 F 80 20 102/50 L 86 L 04/27/21 07:27 93 L 04/27/21 04:00 94 L 04/27/21 03:32 98.4 F 77 20 138/61 92 L 04/27/21 01:22 91 L 04/26/21 22:58 68 20 95 - Problem List Review Problem List Initiated/Reviewed/Updated: Yes - My Orders Last 24 Hours: My Active Orders 04/28/21 05:00 CBC WITH AUTO DIFF [HEME] Timed COMPREHENSIVE METABOLIC PN,CMP [CHEM] Timed 04/28/21 05:11 CRP [C-REACTIVE PROTEIN] [CHEM] AM D Dimer [D-DIMER QUANTITATIVE] [COAG] AM - Plan Plan:: ASSESSMENT AND PLAN - COVID-19 pneumonia-complicated by acute respiratory failure with hypoxia. She has not been vaccinated. Tested positive on April 10. Modest improvement, requiring less supplemental oxygen especially when on her side or prone. Appetite seems to be improving with better intake of supplements. -Dexamethasone 6 mg daily (day 11 total, had 3 days as an outpatient) -Baricitinib 4 mg daily, today is day 6 of 14 -heated/high flow oxygen -Symptomatic management of cough -Goal of negative fluid balance each day -Isolation precautions Maintenance issues - -DVT prophylaxis-enoxaparin -GI prophylaxis-not indicated -Nutrition-regular -Burrell catheter-not indicated Disposition -I anticipate discharge home after the hospital stay Primary care physician -Dr. Ewing
[2021-04-27] MEDS: Morphine 10 MG/0.5 ML Oral Syringe PO PRN (17:03)
[2021-04-27] MEDS: Melatonin 3 MG Tab PO PRN (21:57)
[2021-04-28] MEDS: Acetaminophen 325 MG Tab PO PRN ×2 (04:29→21:41)
[2021-04-28] MEDS: LORazepam ORAL Concentrate 1MG/0.5ML U/D PO PRN ×2 (08:06→21:41)
[2021-04-28] MEDS: Enoxaparin 40 MG/0.4 ML Syringe SUBCUT SCH (08:28)
[2021-04-28] MEDS: Dexamethasone 4 MG/ML SDV IVPUSH SCH (08:29)
--- NOTE | 2021-04-28 11:26 | PCM.PN ---
- General Info Date of Service: 04/28/21 Subjective Update: Ms. Gerardo continues to show slow improvement in oxygenation. When lying prone or on her side saturations are good on 2 to 4 L of oxygen per minute via nasal cannula. With activity she continues to desaturate and requires much higher levels of supplemental oxygen to recover from activity and maintain adequate saturations. Appetite seems to be slowly improving and her albumin is up over the past few days. Functional Status: Reports: Urinating - Review of Systems General: Reports: Weakness, Fatigue. Denies: Fever, Chills Pulmonary: Reports: Shortness of Breath, Cough, Sputum. Denies: Pleuritic Chest Pain, Hemoptysis, Wheezing Cardiovascular: Reports: Dyspnea on Exertion. Denies: Chest Pain, Palpitations, Orthopnea, PND, Edema, Lightheadedness Gastrointestinal: Reports: No Symptoms Genitourinary: Reports: No Symptoms - Patient Data Vitals - Most Recent: Last Vital Signs Temp 97.7 F 04/28/21 07:00 Pulse 67 04/28/21 02:00 Resp 18 04/28/21 02:00 BP 113/59 L 04/28/21 07:00 Pulse Ox 92 L 04/28/21 07:20 Weight - Most Recent: 141 lb 0.017 oz I&O - Last 24 Hours: Intake & Output 04/27/21 04/28/21 04/28/21 22:59 06:59 14:59 Intake Total 360 Balance 360 Lab Results Last 24 Hours: Laboratory Results - last 24 hr 04/28/21 04/28/21 04/28/21 Range/Units 04:40 04:40 04:40 WBC 11.1 H (4.5-11.0) K/uL RBC 3.92 (3.30-5.50) M/uL Hgb 12.1 (12.0-15.0) g/dL Hct 35.8 L (36.0-48.0) % MCV 91 (80-98) fL MCH 31 (27-31) pg MCHC 34 (32-36) % Plt Count 337 (150-400) K/uL Neut % (Auto) 90.3 H (36-66) % Lymph % (Auto) 7.4 L (24-44) % Wright % (Auto) 2.1 (2-6) % Eos % (Auto) 0.1 L (2-4) % Baso % (Auto) 0.1 (0-1) % D-Dimer, Quantitative 2459.59 H (0.0-500.0) ng/mL Sodium 137 L (140-148) mmol/L Potassium 4.8 (3.6-5.2) mmol/L Chloride 101 (100-108) mmol/L Carbon Dioxide 29 (21-32) mmol/L Anion Gap 11.8 (5.0-14.0) mmol/L BUN 27 H (7-18) mg/dL Creatinine 0.6 (0.6-1.0) mg/dL Est Cr Clr Drug Dosing 52.77 mL/min Estimated GFR (MDRD) > 60 (>60) Glucose 89 (74-106) mg/dL Calcium 8.1 L (8.5-10.1) mg/dL Total Bilirubin 0.7 (0.2-1.0) mg/dL AST 23 (15-37) U/L ALT 51 (12-78) U/L Alkaline Phosphatase 47 (46-116) U/L C-Reactive Protein (0.0-0.3) mg/dL Total Protein 5.2 L (6.4-8.2) g/dL Albumin 1.9 L (3.4-5.0) g/dL Globulin 3.3 (2.3-3.5) g/dL Albumin/Globulin Ratio 0.6 L (1.2-2.2) 04/28/21 Range/Units 04:40 WBC (4.5-11.0) K/uL RBC (3.30-5.50) M/uL Hgb (12.0-15.0) g/dL Hct (36.0-48.0) % MCV (80-98) fL MCH (27-31) pg MCHC (32-36) % Plt Count (150-400) K/uL Neut % (Auto) (36-66) % Lymph % (Auto) (24-44) % Wright % (Auto) (2-6) % Eos % (Auto) (2-4) % Baso % (Auto) (0-1) % D-Dimer, Quantitative (0.0-500.0) ng/mL Sodium (140-148) mmol/L Potassium (3.6-5.2) mmol/L Chloride (100-108) mmol/L Carbon Dioxide (21-32) mmol/L Anion Gap (5.0-14.0) mmol/L BUN (7-18) mg/dL Creatinine (0.6-1.0) mg/dL Est Cr Clr Drug Dosing mL/min Estimated GFR (MDRD) (>60) Glucose (74-106) mg/dL Calcium (8.5-10.1) mg/dL Total Bilirubin (0.2-1.0) mg/dL AST (15-37) U/L ALT (12-78) U/L Alkaline Phosphatase (46-116) U/L C-Reactive Protein 6.82 H (0.0-0.3) mg/dL Total Protein (6.4-8.2) g/dL Albumin (3.4-5.0) g/dL Globulin (2.3-3.5) g/dL Albumin/Globulin Ratio (1.2-2.2) Med Orders - Current: Current Medications Acetaminophen (Acetaminophen 325 Mg Tab) 650 mg PO Q4H PRN PRN Reason: Pain/Fever Last Admin: 04/28/21 04:29 Dose: 650 mg Documented by: Benzonatate (Benzonatate 100 Mg Cap) 100 mg PO Q8H PRN PRN Reason: Cough Last Admin: 04/22/21 13:13 Dose: 100 mg Documented by: Dexamethasone (Dexamethasone 4 Mg/Ml Sdv) 6 mg IVPUSH Q24H [facility] Last Admin: 04/28/21 08:29 Dose: 6 mg Documented by: Enoxaparin Sodium (Enoxaparin 40 Mg/0.4 Ml Syringe) 40 mg SUBCUT DAILY [facility] Last Admin: 04/28/21 08:28 Dose: 40 mg Documented by: Guaifenesin/Dextromethorphan (Guaifenesin/Dextromethorphan 100-10 Mg/5 Ml Soln 10 Ml Cup) 10 ml PO Q4H PRN PRN Reason: Cough Last Admin: 04/27/21 08:53 Dose: 10 ml Documented by: Lorazepam (Lorazepam Oral Concentrate 1mg/0.5ml U/D) 0.25 mg PO Q2H PRN PRN Reason: Anxiety Last Admin: 04/28/21 08:06 Dose: 0.25 mg Documented by: Melatonin (Melatonin 3 Mg Tab) 9 mg PO BEDTIME PRN PRN Reason: Sleep Last Admin: 04/27/21 21:57 Dose: 9 mg Documented by: Morphine Sulfate (Morphine 10 Mg/0.5 Ml Oral Syringe) 5 mg PO Q2H PRN PRN Reason: pain/air hunger Last Admin: 04/27/21 17:03 Dose: 5 mg Documented by: Ondansetron HCl (Ondansetron 4 Mg Tab.Dis) 4 mg PO Q4H PRN PRN Reason: Nausea/Vomiting Ondansetron HCl (Ondansetron 4 Mg/2 Ml Sdv) 4 mg IVPUSH Q4H PRN PRN Reason: Nausea/Vomiting Sodium Chloride (Sodium Chloride 0.9% 10 Ml Syringe) 10 ml FLUSH ASDIRECTED PRN PRN Reason: Keep Vein Open Discontinued Medications Enoxaparin Sodium (Enoxaparin 80 Mg/0.8 Ml Syringe) 70 mg SUBCUT Q12H [facility] Last Admin: 04/20/21 03:34 Dose: 70 mg Documented by: Sodium Chloride (Sodium Chloride 0.9% 10 Ml Syringe) 10 ml FLUSH ASDIRECTED PRN PRN Reason: Keep Vein Open Last Admin: 04/20/21 00:51 Dose: 10 ml Documented by: - Exam Quality Assessment: Supplemental Oxygen, DVT Prophylaxis General: Alert, Oriented, Cooperative, Moderate Distress Lungs: Rales. No: Crackles, Rhonchi, Wheezing Cardiovascular: Regular Rate, Regular Rhythm, No Murmurs GI/Abdominal Exam: Soft, Non-Tender, No Organomegaly, No Distention Extremities: Non-Tender, No Pedal Edema - Patient Data Lab Results Last 24 hrs: Laboratory Results - last 24 hr 04/28/21 04/28/21 04/28/21 Range/Units 04:40 04:40 04:40 WBC 11.1 H (4.5-11.0) K/uL RBC 3.92 (3.30-5.50) M/uL Hgb 12.1 (12.0-15.0) g/dL Hct 35.8 L (36.0-48.0) % MCV 91 (80-98) fL MCH 31 (27-31) pg MCHC 34 (32-36) % Plt Count 337 (150-400) K/uL Neut % (Auto) 90.3 H (36-66) % Lymph % (Auto) 7.4 L (24-44) % Wright % (Auto) 2.1 (2-6) % Eos % (Auto) 0.1 L (2-4) % Baso % (Auto) 0.1 (0-1) % D-Dimer, Quantitative 2459.59 H (0.0-500.0) ng/mL Sodium 137 L (140-148) mmol/L Potassium 4.8 (3.6-5.2) mmol/L Chloride 101 (100-108) mmol/L Carbon Dioxide 29 (21-32) mmol/L Anion Gap 11.8 (5.0-14.0) mmol/L BUN 27 H (7-18) mg/dL Creatinine 0.6 (0.6-1.0) mg/dL Est Cr Clr Drug Dosing 52.77 mL/min Estimated GFR (MDRD) > 60 (>60) Glucose 89 (74-106) mg/dL Calcium 8.1 L (8.5-10.1) mg/dL Total Bilirubin 0.7 (0.2-1.0) mg/dL AST 23 (15-37) U/L ALT 51 (12-78) U/L Alkaline Phosphatase 47 (46-116) U/L C-Reactive Protein (0.0-0.3) mg/dL Total Protein 5.2 L (6.4-8.2) g/dL Albumin 1.9 L (3.4-5.0) g/dL Globulin 3.3 (2.3-3.5) g/dL Albumin/Globulin Ratio 0.6 L (1.2-2.2) 04/28/21 Range/Units 04:40 WBC (4.5-11.0) K/uL RBC (3.30-5.50) M/uL Hgb (12.0-15.0) g/dL Hct (36.0-48.0) % MCV (80-98) fL MCH (27-31) pg MCHC (32-36) % Plt Count (150-400) K/uL Neut % (Auto) (36-66) % Lymph % (Auto) (24-44) % Wright % (Auto) (2-6) % Eos % (Auto) (2-4) % Baso % (Auto) (0-1) % D-Dimer, Quantitative (0.0-500.0) ng/mL Sodium (140-148) mmol/L Potassium (3.6-5.2) mmol/L Chloride (100-108) mmol/L Carbon Dioxide (21-32) mmol/L Anion Gap (5.0-14.0) mmol/L BUN (7-18) mg/dL Creatinine (0.6-1.0) mg/dL Est Cr Clr Drug Dosing mL/min Estimated GFR (MDRD) (>60) Glucose (74-106) mg/dL Calcium (8.5-10.1) mg/dL Total Bilirubin (0.2-1.0) mg/dL AST (15-37) U/L ALT (12-78) U/L Alkaline Phosphatase (46-116) U/L C-Reactive Protein 6.82 H (0.0-0.3) mg/dL Total Protein (6.4-8.2) g/dL Albumin (3.4-5.0) g/dL Globulin (2.3-3.5) g/dL Albumin/Globulin Ratio (1.2-2.2) Result Diagrams: 04/28/21 04:40 04/28/21 04:40 Sepsis Event Note - Evaluation Sepsis Screening Result: No Definite Risk - Focused Exam Vital Signs: Vital Signs Temp Pulse Resp BP Pulse Ox 04/28/21 07:20 92 L 04/28/21 07:00 97.7 F 113/59 L 88 L 04/28/21 04:34 126/59 L 04/28/21 02:00 97.7 F 67 18 92 L 04/28/21 01:11 97 - Problem List Review Problem List Initiated/Reviewed/Updated: Yes - Plan Plan:: ASSESSMENT AND PLAN - COVID-19 pneumonia-complicated by acute respiratory failure with hypoxia. She has not been vaccinated. Tested positive on April 10. Modest improvement, requiring less supplemental oxygen especially when on her side or prone. Appetite seems to be improving with better intake of supplements. -Dexamethasone 6 mg daily (day 12 total, had 3 days as an outpatient) -Baricitinib 4 mg daily, today is day 7 of 14 -heated/high flow oxygen -Symptomatic management of cough -Goal of negative fluid balance each day -Isolation precautions Maintenance issues - -DVT prophylaxis-enoxaparin -GI prophylaxis-not indicated -Nutrition-regular -Burrell catheter-not indicated Disposition -I anticipate discharge home after the hospital stay Primary care physician -Dr. Ewing
[2021-04-28] MEDS: Morphine 10 MG/0.5 ML Oral Syringe PO PRN (17:07)
[2021-04-28] MEDS: Melatonin 3 MG Tab PO PRN (21:40)
[2021-04-29] MEDS: Morphine 10 MG/0.5 ML Oral Syringe PO PRN ×2 (09:02→10:33)
[2021-04-29] MEDS: Enoxaparin 40 MG/0.4 ML Syringe SUBCUT SCH (09:02)
[2021-04-29] MEDS: Dexamethasone 4 MG/ML SDV IVPUSH SCH (09:02)
[2021-04-29] MEDS: LORazepam ORAL Concentrate 1MG/0.5ML U/D PO PRN ×2 (09:03→22:07)
--- NOTE | 2021-04-29 12:24 | PCM.PN ---
- General Info Date of Service: 04/29/21 Subjective Update: No acute events overnight. She does continue to require supplemental oxygen. Oxygen requirement is highest in the morning and does get better as the day goes on. Energy seems to improve as the day goes on. Appetite has been steady but suboptimal. She feels weak and gets short of breath with any activity. She continues to use a bedside commode for toileting. She is complaining of pain in her mouth and throat and her daughter has noticed a whitish coating on her tongue and is worried about thrush. Functional Status: Reports: Pain Controlled, Tolerating Diet - Review of Systems General: Reports: Weakness - Patient Data Vitals - Most Recent: Last Vital Signs Temp 36.5 C 04/29/21 08:30 Pulse 95 04/29/21 08:30 Resp 20 04/29/21 08:30 BP 124/59 L 04/29/21 08:30 Pulse Ox 89 L 04/29/21 08:30 Weight - Most Recent: 63.957 kg I&O - Last 24 Hours: Intake & Output 04/28/21 04/29/21 04/29/21 22:59 06:59 14:59 Intake Total 720 300 Balance 720 300 Med Orders - Current: Current Medications Acetaminophen (Acetaminophen 325 Mg Tab) 650 mg PO Q4H PRN PRN Reason: Pain/Fever Last Admin: 04/28/21 21:41 Dose: 650 mg Documented by: Benzonatate (Benzonatate 100 Mg Cap) 100 mg PO Q8H PRN PRN Reason: Cough Last Admin: 04/22/21 13:13 Dose: 100 mg Documented by: Enoxaparin Sodium (Enoxaparin 40 Mg/0.4 Ml Syringe) 40 mg SUBCUT DAILY [facility] Last Admin: 04/29/21 09:02 Dose: 40 mg Documented by: Guaifenesin/Dextromethorphan (Guaifenesin/Dextromethorphan 100-10 Mg/5 Ml Soln 10 Ml Cup) 10 ml PO Q4H PRN PRN Reason: Cough Last Admin: 04/27/21 08:53 Dose: 10 ml Documented by: Lorazepam (Lorazepam Oral Concentrate 1mg/0.5ml U/D) 0.25 mg PO Q2H PRN PRN Reason: Anxiety Last Admin: 04/29/21 09:03 Dose: 0.25 mg Documented by: Melatonin (Melatonin 3 Mg Tab) 9 mg PO BEDTIME PRN PRN Reason: Sleep Last Admin: 04/28/21 21:40 Dose: 9 mg Documented by: Morphine Sulfate (Morphine 10 Mg/0.5 Ml Oral Syringe) 5 mg PO Q2H PRN PRN Reason: pain/air hunger Last Admin: 04/29/21 10:33 Dose: 5 mg Documented by: Ondansetron HCl (Ondansetron 4 Mg Tab.Dis) 4 mg PO Q4H PRN PRN Reason: Nausea/Vomiting Ondansetron HCl (Ondansetron 4 Mg/2 Ml Sdv) 4 mg IVPUSH Q4H PRN PRN Reason: Nausea/Vomiting Sodium Chloride (Sodium Chloride 0.9% 10 Ml Syringe) 10 ml FLUSH ASDIRECTED PRN PRN Reason: Keep Vein Open Discontinued Medications Dexamethasone (Dexamethasone 4 Mg/Ml Sdv) 6 mg IVPUSH Q24H [facility] Last Admin: 04/29/21 09:02 Dose: 6 mg Documented by: Enoxaparin Sodium (Enoxaparin 80 Mg/0.8 Ml Syringe) 70 mg SUBCUT Q12H [facility] Last Admin: 04/20/21 03:34 Dose: 70 mg Documented by: Sodium Chloride (Sodium Chloride 0.9% 10 Ml Syringe) 10 ml FLUSH ASDIRECTED PRN PRN Reason: Keep Vein Open Last Admin: 04/20/21 00:51 Dose: 10 ml Documented by: - Exam Quality Assessment: Supplemental Oxygen General: Alert, Oriented, Cooperative, No Acute Distress Lungs: Normal Respiratory Effort, Crackles (mild diffuse dry crackles ) Cardiovascular: Regular Rate, Regular Rhythm GI/Abdominal Exam: Soft, No Distention Psy/Mental Status: Alert, Normal Affect - Patient Data Result Diagrams: 04/28/21 04:40 04/28/21 04:40 Sepsis Event Note - Evaluation Sepsis Screening Result: No Definite Risk - Focused Exam Vital Signs: Vital Signs Temp Pulse Resp BP Pulse Ox 04/29/21 08:30 36.5 C 95 20 124/59 L 89 L 04/29/21 07:55 97 04/29/21 02:00 74 93 L 04/29/21 01:10 90 L - Problem List Review Problem List Initiated/Reviewed/Updated: Yes - My Orders Last 24 Hours: My Active Orders 04/29/21 12:22 PT Evaluation and Treatment [CONS] Routine 04/29/21 12:30 Nystatin [Mycostatin] 5 ml PO QID 04/30/21 05:00 BASIC METABOLIC PANEL,BMP [CHEM] Timed CBC W/O DIFF,HEMOGRAM [HEME] Timed (1) CRP [C-REACTIVE PROTEIN] [CHEM] Timed D-DIMER QUANTITATIVE [COAG] Timed 04/30/21 09:00 dexAMETHasone 4 mg PO DAILY - Plan Plan:: ASSESSMENT AND PLAN - COVID-19 pneumonia-complicated by acute respiratory failure with hypoxia. She has not been vaccinated. Tested positive on April 10. She is slowly improving but does continue to require supplemental oxygen at a slightly higher level that can be supported at home. She is quite weak and would benefit from some physical therapy. Appetite still suboptimal. -Dexamethasone taper, decreasing to 4 mg daily starting tomorrow -Baricitinib 4 mg daily, today is day 8 of 14 -Supplement oxygen as needed, wean as able -Symptomatic management of cough -Goal of negative fluid balance each day -Isolation precautions through April 30 (20 days) -Physical therapy Probable thrush-tongue is erythematous but there is no white plaque-like coating at this time. She does also complain of some odynophagia. -Nystatin swish and swallow Maintenance issues - -DVT prophylaxis-enoxaparin -GI prophylaxis-not indicated -Nutrition-regular -Burrell catheter-not indicated Disposition -I anticipate discharge home with home care versus possibly subacute rehab after the hospital stay Primary care physician -Dr. Ewing
[2021-04-29] MEDS: Nystatin Susp 100,000 Unit/ML 5 ML UD Cup PO SCH ×4 (14:49→21:08)
[2021-04-29] MEDS: Acetaminophen 325 MG Tab PO PRN (22:08)
[2021-04-29] MEDS: Melatonin 3 MG Tab PO PRN (22:08)
[2021-04-30] MEDS: Nystatin Susp 100,000 Unit/ML 5 ML UD Cup PO SCH ×4 (05:02→21:53)
[2021-04-30] MEDS: Morphine 10 MG/0.5 ML Oral Syringe PO PRN ×2 (08:41→21:53)
[2021-04-30] MEDS: Enoxaparin 40 MG/0.4 ML Syringe SUBCUT SCH (08:42)
[2021-04-30] MEDS: Dexamethasone 2 MG Tab PO SCH (08:42)
--- NOTE | 2021-04-30 12:29 | PCM.PN ---
- General Info Date of Service: 04/30/21 Subjective Update: No acute events overnight. She was off supplemental oxygen for a while last night but was back on 5 to 6 L this morning. Seems to do better in the afternoon and evening and feels more short of breath and is more hypoxic first thing in the morning. She feels weak and tired but otherwise feels okay. Cough is mild and intermittent. She has not had any fevers. She is tolerating her current treatment. She did work with physical therapy yesterday but was only able to do minimal exercises, mostly in bed. Appetite is not great but is slowly improving. Functional Status: Reports: Pain Controlled, Tolerating Diet - Review of Systems General: Reports: Weakness Pulmonary: Reports: Shortness of Breath - Patient Data Vitals - Most Recent: Last Vital Signs Temp 36.5 C 04/30/21 08:00 Pulse 71 04/30/21 08:00 Resp 18 04/30/21 08:00 BP 151/63 H 04/30/21 05:02 Pulse Ox 87 L 04/30/21 08:00 Weight - Most Recent: 63.957 kg I&O - Last 24 Hours: Intake & Output 04/29/21 04/30/21 04/30/21 22:59 06:59 14:59 Intake Total 240 Balance 240 Lab Results Last 24 Hours: Laboratory Results - last 24 hr 04/30/21 04/30/21 04/30/21 Range/Units 05:30 05:30 05:30 WBC 10.4 (4.5-11.0) K/uL RBC 3.96 (3.30-5.50) M/uL Hgb 12.3 (12.0-15.0) g/dL Hct 35.8 L (36.0-48.0) % MCV 90 (80-98) fL MCH 31 (27-31) pg MCHC 34 (32-36) % Plt Count 336 (150-400) K/uL D-Dimer, Quantitative 1617.48 H (0.0-500.0) ng/mL Sodium 137 L (140-148) mmol/L Potassium 4.8 (3.6-5.2) mmol/L Chloride 101 (100-108) mmol/L Carbon Dioxide 29 (21-32) mmol/L Anion Gap 11.8 (5.0-14.0) mmol/L BUN 26 H (7-18) mg/dL Creatinine 0.6 (0.6-1.0) mg/dL Est Cr Clr Drug Dosing 52.77 mL/min Estimated GFR (MDRD) > 60 (>60) Glucose 94 (74-106) mg/dL Calcium 8.0 L (8.5-10.1) mg/dL C-Reactive Protein 8.42 H (0.0-0.3) mg/dL Med Orders - Current: Current Medications Acetaminophen (Acetaminophen 325 Mg Tab) 650 mg PO Q4H PRN PRN Reason: Pain/Fever Last Admin: 04/29/21 22:08 Dose: 650 mg Documented by: Benzonatate (Benzonatate 100 Mg Cap) 100 mg PO Q8H PRN PRN Reason: Cough Last Admin: 04/22/21 13:13 Dose: 100 mg Documented by: Dexamethasone (Dexamethasone 2 Mg Tab) 4 mg PO DAILY [facility] Last Admin: 04/30/21 08:42 Dose: 4 mg Documented by: Enoxaparin Sodium (Enoxaparin 40 Mg/0.4 Ml Syringe) 40 mg SUBCUT DAILY [facility] Last Admin: 04/30/21 08:42 Dose: 40 mg Documented by: Guaifenesin/Dextromethorphan (Guaifenesin/Dextromethorphan 100-10 Mg/5 Ml Soln 10 Ml Cup) 10 ml PO Q4H PRN PRN Reason: Cough Last Admin: 04/27/21 08:53 Dose: 10 ml Documented by: Lorazepam (Lorazepam Oral Concentrate 1mg/0.5ml U/D) 0.25 mg PO Q2H PRN PRN Reason: Anxiety Last Admin: 04/29/21 22:07 Dose: 0.25 mg Documented by: Melatonin (Melatonin 3 Mg Tab) 9 mg PO BEDTIME PRN PRN Reason: Sleep Last Admin: 04/29/21 22:08 Dose: 9 mg Documented by: Morphine Sulfate (Morphine 10 Mg/0.5 Ml Oral Syringe) 5 mg PO Q2H PRN PRN Reason: pain/air hunger Last Admin: 04/30/21 08:41 Dose: 5 mg Documented by: Nystatin (Nystatin Susp 100,000 Unit/Ml 5 Ml Ud Cup) 5 ml PO QID [facility] Last Admin: 04/30/21 11:48 Dose: 5 ml Documented by: Ondansetron HCl (Ondansetron 4 Mg Tab.Dis) 4 mg PO Q4H PRN PRN Reason: Nausea/Vomiting Ondansetron HCl (Ondansetron 4 Mg/2 Ml Sdv) 4 mg IVPUSH Q4H PRN PRN Reason: Nausea/Vomiting Sodium Chloride (Sodium Chloride 0.9% 10 Ml Syringe) 10 ml FLUSH ASDIRECTED PRN PRN Reason: Keep Vein Open Discontinued Medications Dexamethasone (Dexamethasone 4 Mg/Ml Sdv) 6 mg IVPUSH Q24H [facility] Last Admin: 04/29/21 09:02 Dose: 6 mg Documented by: Enoxaparin Sodium (Enoxaparin 80 Mg/0.8 Ml Syringe) 70 mg SUBCUT Q12H [facility] Last Admin: 04/20/21 03:34 Dose: 70 mg Documented by: Sodium Chloride (Sodium Chloride 0.9% 10 Ml Syringe) 10 ml FLUSH ASDIRECTED PRN PRN Reason: Keep Vein Open Last Admin: 04/20/21 00:51 Dose: 10 ml Documented by: - Exam Quality Assessment: Supplemental Oxygen General: Alert, Oriented, Cooperative, No Acute Distress Lungs: Normal Respiratory Effort, Crackles (moderate both lower 1/3, few mild middle 1/3 both lungs) Cardiovascular: Regular Rate, Regular Rhythm GI/Abdominal Exam: Soft, No Distention Psy/Mental Status: Alert, Normal Affect - Patient Data Lab Results Last 24 hrs: Laboratory Results - last 24 hr 04/30/21 04/30/21 04/30/21 Range/Units 05:30 05:30 05:30 WBC 10.4 (4.5-11.0) K/uL RBC 3.96 (3.30-5.50) M/uL Hgb 12.3 (12.0-15.0) g/dL Hct 35.8 L (36.0-48.0) % MCV 90 (80-98) fL MCH 31 (27-31) pg MCHC 34 (32-36) % Plt Count 336 (150-400) K/uL D-Dimer, Quantitative 1617.48 H (0.0-500.0) ng/mL Sodium 137 L (140-148) mmol/L Potassium 4.8 (3.6-5.2) mmol/L Chloride 101 (100-108) mmol/L Carbon Dioxide 29 (21-32) mmol/L Anion Gap 11.8 (5.0-14.0) mmol/L BUN 26 H (7-18) mg/dL Creatinine 0.6 (0.6-1.0) mg/dL Est Cr Clr Drug Dosing 52.77 mL/min Estimated GFR (MDRD) > 60 (>60) Glucose 94 (74-106) mg/dL Calcium 8.0 L (8.5-10.1) mg/dL C-Reactive Protein 8.42 H (0.0-0.3) mg/dL Result Diagrams: 04/30/21 05:30 04/30/21 05:30 Sepsis Event Note - Evaluation Sepsis Screening Result: No Definite Risk - Focused Exam Vital Signs: Vital Signs Temp Pulse Resp BP Pulse Ox 04/30/21 08:00 36.5 C 71 18 87 L 04/30/21 05:02 36.5 C 73 16 151/63 H 90 L 04/30/21 01:16 92 L - Problem List Review Problem List Initiated/Reviewed/Updated: Yes - My Orders Last 24 Hours: My Active Orders 04/29/21 12:22 PT Evaluation and Treatment [CONS] Routine 04/29/21 12:30 Nystatin [Mycostatin] 5 ml PO QID 04/30/21 09:00 dexAMETHasone 4 mg PO DAILY - Plan Plan:: ASSESSMENT AND PLAN - COVID-19 pneumonia-complicated by acute respiratory failure with hypoxia. positive on April 10. She is slowly improving but does continue to require supplemental oxygen at a slightly higher level that can be supported at home. She is quite weak and physical therapy has been initiated. -Dexamethasone taper, decreasing to 4 mg daily for 5 days with further taper from there -Baricitinib 4 mg daily, today is day 9 of 14 -Supplement oxygen as needed, wean as able -Symptomatic management of cough -Goal of negative fluid balance each day -Isolation precautions through April 30 (20 days) -Physical therapy Probable thrush-symptoms a little better today. -Nystatin swish and swallow Maintenance issues - -DVT prophylaxis-enoxaparin -GI prophylaxis-not indicated -Nutrition-regular -Burrell catheter-not indicated Disposition -I anticipate discharge home with home care versus possibly subacute rehab after the hospital stay. I am hopeful that she will be ready for discharge in the next 2 to 3 days Primary care physician -Dr. Ewing
[2021-04-30] MEDS: LORazepam ORAL Concentrate 1MG/0.5ML U/D PO PRN (20:09)
[2021-04-30] MEDS: Melatonin 3 MG Tab PO PRN (21:53)
[2021-04-30] MEDS: Acetaminophen 325 MG Tab PO PRN (21:53)
[2021-05-01] MEDS: Nystatin Susp 100,000 Unit/ML 5 ML UD Cup PO SCH ×4 (05:45→21:52)
[2021-05-01] MEDS: LORazepam ORAL Concentrate 1MG/0.5ML U/D PO PRN ×3 (07:08→21:52)
[2021-05-01] MEDS: Lactobacillus Rhamnosus GG (Probiotic) Cap PO SCH ×2 (08:55→21:52)
[2021-05-01] MEDS: Dexamethasone 2 MG Tab PO SCH (08:55)
[2021-05-01] MEDS: Enoxaparin 40 MG/0.4 ML Syringe SUBCUT SCH (08:55)
--- NOTE | 2021-05-01 10:53 | PCM.PN ---
- General Info Date of Service: 05/01/21 Subjective Update: No acute events overnight. Patient was off supplemental oxygen for a while again last night but back on this morning. She has been on between 1 and 3 L of oxygen. She continues to complain of pain in her mouth and throat. She does not think it is any better than yesterday. She was started on nystatin yesterday. She still feels weak. Occasionally coughing. Daughter is hoping that she will be ready for discharge tomorrow. Functional Status: Reports: Pain Controlled, Tolerating Diet - Review of Systems General: Denies: Fever HEENT: Reports: Other (mouth and throat pain ) - Patient Data Vitals - Most Recent: Last Vital Signs Temp 36.9 C 05/01/21 07:13 Pulse 77 05/01/21 07:13 Resp 20 05/01/21 07:13 BP 128/56 L 05/01/21 07:13 Pulse Ox 87 L 05/01/21 08:53 Weight - Most Recent: 63.957 kg I&O - Last 24 Hours: Intake & Output 04/30/21 05/01/21 05/01/21 22:59 06:59 14:59 Intake Total 500 500 Balance 500 500 Med Orders - Current: Current Medications Acetaminophen (Acetaminophen 325 Mg Tab) 650 mg PO Q4H PRN PRN Reason: Pain/Fever Last Admin: 04/30/21 21:53 Dose: 650 mg Documented by: Benzonatate (Benzonatate 100 Mg Cap) 100 mg PO Q8H PRN PRN Reason: Cough Last Admin: 04/22/21 13:13 Dose: 100 mg Documented by: Dexamethasone (Dexamethasone 2 Mg Tab) 4 mg PO DAILY [facility] Last Admin: 05/01/21 08:55 Dose: 4 mg Documented by: Enoxaparin Sodium (Enoxaparin 40 Mg/0.4 Ml Syringe) 40 mg SUBCUT DAILY [facility] Last Admin: 05/01/21 08:55 Dose: 40 mg Documented by: Guaifenesin/Dextromethorphan (Guaifenesin/Dextromethorphan 100-10 Mg/5 Ml Soln 10 Ml Cup) 10 ml PO Q4H PRN PRN Reason: Cough Last Admin: 04/27/21 08:53 Dose: 10 ml Documented by: Lactobacillus Rhamnosus (Lactobacillus Rhamnosus Gg (Probiotic) Cap) 1 cap PO BID [facility] Last Admin: 05/01/21 08:55 Dose: 1 cap Documented by: Lorazepam (Lorazepam Oral Concentrate 1mg/0.5ml U/D) 0.25 mg PO Q2H PRN PRN Reason: Anxiety Last Admin: 05/01/21 07:08 Dose: 0.25 mg Documented by: Melatonin (Melatonin 3 Mg Tab) 9 mg PO BEDTIME PRN PRN Reason: Sleep Last Admin: 04/30/21 21:53 Dose: 9 mg Documented by: Morphine Sulfate (Morphine 10 Mg/0.5 Ml Oral Syringe) 5 mg PO Q2H PRN PRN Reason: pain/air hunger Last Admin: 04/30/21 21:53 Dose: 5 mg Documented by: Nystatin (Nystatin Susp 100,000 Unit/Ml 5 Ml Ud Cup) 5 ml PO QID [facility] Last Admin: 05/01/21 05:45 Dose: 5 ml Documented by: Ondansetron HCl (Ondansetron 4 Mg Tab.Dis) 4 mg PO Q4H PRN PRN Reason: Nausea/Vomiting Ondansetron HCl (Ondansetron 4 Mg/2 Ml Sdv) 4 mg IVPUSH Q4H PRN PRN Reason: Nausea/Vomiting Sodium Chloride (Sodium Chloride 0.9% 10 Ml Syringe) 10 ml FLUSH ASDIRECTED PRN PRN Reason: Keep Vein Open Discontinued Medications Dexamethasone (Dexamethasone 4 Mg/Ml Sdv) 6 mg IVPUSH Q24H [facility] Last Admin: 04/29/21 09:02 Dose: 6 mg Documented by: Enoxaparin Sodium (Enoxaparin 80 Mg/0.8 Ml Syringe) 70 mg SUBCUT Q12H [facility] Last Admin: 04/20/21 03:34 Dose: 70 mg Documented by: Sodium Chloride (Sodium Chloride 0.9% 10 Ml Syringe) 10 ml FLUSH ASDIRECTED PRN PRN Reason: Keep Vein Open Last Admin: 04/20/21 00:51 Dose: 10 ml Documented by: - Exam Quality Assessment: Supplemental Oxygen General: Alert, Oriented, Cooperative, No Acute Distress Lungs: Normal Respiratory Effort GI/Abdominal Exam: Soft, No Distention Extremities: No Pedal Edema Psy/Mental Status: Alert, Normal Affect - Patient Data Result Diagrams: 04/30/21 05:30 04/30/21 05:30 Sepsis Event Note - Evaluation Sepsis Screening Result: No Definite Risk - Focused Exam Vital Signs: Vital Signs Temp Pulse Resp BP Pulse Ox 05/01/21 08:53 87 L 05/01/21 07:30 92 L 05/01/21 07:13 36.9 C 77 20 128/56 L 92 L 05/01/21 03:00 36.9 C 69 16 133/69 92 L 05/01/21 01:26 93 L - Problem List Review Problem List Initiated/Reviewed/Updated: Yes - My Orders Last 24 Hours: My Active Orders 05/01/21 09:00 Lactobacillus Rhamnosus GG [Culturelle] 1 cap PO BID 05/01/21 10:51 Lidocaine 2% [Xylocaine 2% Viscous] 30 ml Alum Hydrox/Mag Hydrox/Simeth [Mag-Al Plus] 30 ml diphenhydrAMINE [Benadryl] 75 mg PO Q4H 05/02/21 05:00 C-REACTIVE PROTEIN [CHEM] Timed CBC W/O DIFF,HEMOGRAM [HEME] Timed (1) DD [D-DIMER QUANTITATIVE] [COAG] Timed - Plan Plan:: ASSESSMENT AND PLAN - COVID-19 pneumonia-complicated by acute respiratory failure with hypoxia. positive on April 10. She is slowly and steadily improving. Supplemental oxygen requirements are decreasing slowly. -Dexamethasone taper, decreasing to 4 mg daily for 5 days with further taper from there -Baricitinib treatment complete -Supplement oxygen as needed, wean as able -Symptomatic management of cough -Goal of negative fluid balance each day -Discontinue isolation precautions -Physical therapy Probable thrush-symptoms persist. -Nystatin swish and swallow -Magic mouthwash Maintenance issues - -DVT prophylaxis-enoxaparin -GI prophylaxis-not indicated -Nutrition-regular Disposition -I anticipate discharge home with home care versus possibly subacute rehab after the hospital stay. I am hopeful that she will be ready for discharge in the next 1 - 2 days Primary care physician -Dr. Gildardo Barrera MD
[2021-05-01] MEDS: Lidocaine 2% 30 ML, Alum Hydrox/Mag Hydrox/Simeth 30 ML, diphenhydrAMINE 75 MG PO PRN ×6 (12:11→19:46)
[2021-05-01] MEDS: Morphine 10 MG/0.5 ML Oral Syringe PO PRN (19:41)
[2021-05-01] MEDS: Acetaminophen 325 MG Tab PO PRN (21:52)
[2021-05-01] MEDS: Melatonin 3 MG Tab PO PRN (21:52)
[2021-05-02] MEDS: Nystatin Susp 100,000 Unit/ML 5 ML UD Cup PO SCH ×2 (05:45→09:55)
[2021-05-02] MEDS: Lidocaine 2% 30 ML, Alum Hydrox/Mag Hydrox/Simeth 30 ML, diphenhydrAMINE 75 MG PO PRN ×6 (05:53→09:55)
[2021-05-02] MEDS: LORazepam ORAL Concentrate 1MG/0.5ML U/D PO PRN ×3 (05:58→22:07)
[2021-05-02] MEDS: Lactobacillus Rhamnosus GG (Probiotic) Cap PO SCH ×2 (09:55→22:07)
[2021-05-02] MEDS: Dexamethasone 2 MG Tab PO SCH (09:55)
[2021-05-02] MEDS: Enoxaparin 40 MG/0.4 ML Syringe SUBCUT SCH (09:55)
[2021-05-02] MEDS: Acetaminophen 325 MG Tab PO PRN ×2 (11:24→20:07)
[2021-05-02] MEDS: Clotrimazole 10 MG Troche PO SCH ×4 (11:25→22:08)
--- NOTE | 2021-05-02 14:31 | PCM.PN ---
- General Info Date of Service: 05/02/21 Subjective Update: No acute events overnight. Off oxygen for periods of time but does require oxygen usually early in the morning and with activity. She has required up to 4 L of oxygen. She continues to endorse pain in her mouth and throat. She has difficulty eating because of the pain. She feels weak. She has hesitant to be discharged because she is worried she cannot take care of herself. Her daughter reassured her that she would have plenty of help after hospital discharge. She has not had any fevers. Still weak but slowly improving. - Patient Data Vitals - Most Recent: Last Vital Signs Temp 36.5 C 05/02/21 11:40 Pulse 95 05/02/21 11:40 Resp 18 05/02/21 11:40 BP 109/42 L 05/02/21 11:40 Pulse Ox 91 L 05/02/21 12:30 Weight - Most Recent: 63.957 kg I&O - Last 24 Hours: Intake & Output 05/01/21 05/02/21 05/02/21 22:59 06:59 14:59 Intake Total 1130 600 Balance 1130 600 Lab Results Last 24 Hours: Laboratory Results - last 24 hr 05/02/21 05/02/21 05/02/21 Range/Units 05:53 05:53 05:53 WBC 9.8 (4.5-11.0) K/uL RBC 3.95 (3.30-5.50) M/uL Hgb 11.8 L (12.0-15.0) g/dL Hct 36.1 (36.0-48.0) % MCV 91 (80-98) fL MCH 30 (27-31) pg MCHC 33 (32-36) % Plt Count 365 (150-400) K/uL D-Dimer, Quantitative 1302.10 H (0.0-500.0) ng/mL C-Reactive Protein 3.43 H (0.0-0.3) mg/dL Med Orders - Current: Current Medications Acetaminophen (Acetaminophen 325 Mg Tab) 650 mg PO Q4H PRN PRN Reason: Pain/Fever Last Admin: 05/02/21 11:24 Dose: 650 mg Documented by: Benzonatate (Benzonatate 100 Mg Cap) 100 mg PO Q8H PRN PRN Reason: Cough Last Admin: 04/22/21 13:13 Dose: 100 mg Documented by: Clotrimazole (Clotrimazole 10 Mg Shaheen) 10 mg PO 5XDAY [facility] Last Admin: 05/02/21 13:57 Dose: Not Given Documented by: Lidocaine HCl 30 ml/ Al Hydroxide/Mg Hydroxide 30 ml/Diphenhydramine HCl 75 mg 0 ml PO Q4H PRN PRN Reason: Mouth/Throat pain Last Admin: 05/02/21 09:55 Dose: 30 ml Documented by: Dexamethasone (Dexamethasone 2 Mg Tab) 2 mg PO DAILY [facility] Enoxaparin Sodium (Enoxaparin 40 Mg/0.4 Ml Syringe) 40 mg SUBCUT DAILY [facility] Last Admin: 05/02/21 09:55 Dose: 40 mg Documented by: Guaifenesin/Dextromethorphan (Guaifenesin/Dextromethorphan 100-10 Mg/5 Ml Soln 10 Ml Cup) 10 ml PO Q4H PRN PRN Reason: Cough Last Admin: 04/27/21 08:53 Dose: 10 ml Documented by: Lactobacillus Rhamnosus (Lactobacillus Rhamnosus Gg (Probiotic) Cap) 1 cap PO BID [facility] Last Admin: 05/02/21 09:55 Dose: 1 cap Documented by: Lorazepam (Lorazepam Oral Concentrate 1mg/0.5ml U/D) 0.25 mg PO Q2H PRN PRN Reason: Anxiety Last Admin: 05/02/21 11:24 Dose: 0.25 mg Documented by: Melatonin (Melatonin 3 Mg Tab) 9 mg PO BEDTIME PRN PRN Reason: Sleep Last Admin: 05/01/21 21:52 Dose: 9 mg Documented by: Morphine Sulfate (Morphine 10 Mg/0.5 Ml Oral Syringe) 5 mg PO Q2H PRN PRN Reason: pain/air hunger Last Admin: 05/01/21 19:41 Dose: 5 mg Documented by: Ondansetron HCl (Ondansetron 4 Mg Tab.Dis) 4 mg PO Q4H PRN PRN Reason: Nausea/Vomiting Ondansetron HCl (Ondansetron 4 Mg/2 Ml Sdv) 4 mg IVPUSH Q4H PRN PRN Reason: Nausea/Vomiting Sodium Chloride (Sodium Chloride 0.9% 10 Ml Syringe) 10 ml FLUSH ASDIRECTED PRN PRN Reason: Keep Vein Open Discontinued Medications Dexamethasone (Dexamethasone 4 Mg/Ml Sdv) 6 mg IVPUSH Q24H [facility] Last Admin: 04/29/21 09:02 Dose: 6 mg Documented by: Dexamethasone (Dexamethasone 2 Mg Tab) 4 mg PO DAILY [facility] Last Admin: 05/02/21 09:55 Dose: 4 mg Documented by: Enoxaparin Sodium (Enoxaparin 80 Mg/0.8 Ml Syringe) 70 mg SUBCUT Q12H [facility] Last Admin: 04/20/21 03:34 Dose: 70 mg Documented by: Nystatin (Nystatin Susp 100,000 Unit/Ml 5 Ml Ud Cup) 5 ml PO QID [facility] Last Admin: 05/02/21 09:55 Dose: 5 ml Documented by: Sodium Chloride (Sodium Chloride 0.9% 10 Ml Syringe) 10 ml FLUSH ASDIRECTED PRN PRN Reason: Keep Vein Open Last Admin: 04/20/21 00:51 Dose: 10 ml Documented by: - Exam Quality Assessment: Supplemental Oxygen General: Alert, Cooperative, No Acute Distress Lungs: Normal Respiratory Effort, Crackles (Moderate diffuse dry crackles in the lower half of both lungs) Cardiovascular: Regular Rate, Regular Rhythm GI/Abdominal Exam: Soft, No Distention Extremities: No Pedal Edema. No: Increased Warmth Skin: Warm, Dry Psy/Mental Status: Alert, Normal Affect - Patient Data Lab Results Last 24 hrs: Laboratory Results - last 24 hr 05/02/21 05/02/21 05/02/21 Range/Units 05:53 05:53 05:53 WBC 9.8 (4.5-11.0) K/uL RBC 3.95 (3.30-5.50) M/uL Hgb 11.8 L (12.0-15.0) g/dL Hct 36.1 (36.0-48.0) % MCV 91 (80-98) fL MCH 30 (27-31) pg MCHC 33 (32-36) % Plt Count 365 (150-400) K/uL D-Dimer, Quantitative 1302.10 H (0.0-500.0) ng/mL C-Reactive Protein 3.43 H (0.0-0.3) mg/dL Result Diagrams: 05/02/21 05:53 04/30/21 05:30 Sepsis Event Note - Evaluation Sepsis Screening Result: No Definite Risk - Focused Exam Vital Signs: Vital Signs Temp Temp Pulse Resp BP Pulse Ox Pulse Ox 05/02/21 12:30 91 L 05/02/21 11:40 36.5 C 95 18 109/42 L 91 L 05/02/21 11:00 91 L 05/02/21 10:29 76 L 05/02/21 08:04 36.9 C 76 20 156/55 H 91 L 05/02/21 07:03 94 L 05/02/21 02:40 37.1 C 71 18 141/61 H 95 - Problem List Review Problem List Initiated/Reviewed/Updated: Yes - My Orders Last 24 Hours: My Active Orders 05/02/21 10:00 Clotrimazole [Mycelex] 10 mg PO 5XDAY 05/02/21 12:33 OT Evaluation and Treatment [CONS] Routine 05/03/21 09:00 dexAMETHasone 2 mg PO DAILY - Plan Plan:: ASSESSMENT AND PLAN - COVID-19 pneumonia-complicated by acute respiratory failure with hypoxia. positive on April 10. She is slowly and steadily improving. Supplemental oxygen requirements are decreasing slowly. Family is on the fence about whether she is safe for discharge today and would like some additional physical therapy before they decide. -Dexamethasone taper, 4 mg today and then reduce to 2 mg for 4 days starting tomorrow -Baricitinib treatment complete -Supplement oxygen as needed, wean as able -Symptomatic management of cough -Goal of negative fluid balance each day -Discontinue isolation precautions -Physical therapy Probable thrush-symptoms persist and seem to be one of her biggest limiting factors at this time. -Mycelex troches 5 times daily -Magic mouthwash Maintenance issues - -DVT prophylaxis-enoxaparin -GI prophylaxis-not indicated -Nutrition-regular Disposition -I anticipate discharge home with home care versus possibly subacute rehab after the hospital stay. I am hopeful that she will be ready for discharge in the next 1 - 2 days Primary care physician -Dr. Gildardo Barrera MD
[2021-05-02] MEDS: Melatonin 3 MG Tab PO PRN (22:07)
[2021-05-03] MEDS: LORazepam ORAL Concentrate 1MG/0.5ML U/D PO PRN (06:03)
[2021-05-03] MEDS: Clotrimazole 10 MG Troche PO SCH ×2 (06:03→09:36)
[2021-05-03] MEDS ORDERED: Dexamethasone 2 MG Tab PO SCH (09:00)
[2021-05-03] MEDS: Acetaminophen 325 MG Tab PO PRN (09:36)
[2021-05-03] MEDS: Lactobacillus Rhamnosus GG (Probiotic) Cap PO SCH (09:36)
[2021-05-03] MEDS: Enoxaparin 40 MG/0.4 ML Syringe SUBCUT SCH (09:36)
--- NOTE | 2021-05-03 11:03 | PCM.DCSUM1 ---
Discharge Summary - Hospital Course Brief History: Healthy 85-year-old female who presented with cough, shortness of breath and weakness. She was admitted for management of COVID-19 pneumonia with acute respiratory failure with hypoxia. Diagnosis: Stroke: No - Discharge Data Discharge Date: 05/03/21 Discharge Disposition: Home, W Home Health Agency 06 Condition: Fair - Referral to Home Health Date of Face to Face Encounter: 05/03/21 Reason for Homebound Status: covid pneumonia, resp failure Primary Care Physician: Kiko Ewing MD Skilled Need: physical therapy - Discharge Diagnosis/Problem(s) (1) Pneumonia due to COVID-19 virus SNOMED Code(s): 043029528086661653 ICD Code: U07.1 - COVID-19; J12.82 - PNEUMONIA DUE TO CORONAVIRUS DISEASE 2018 Status: Acute (2) Acute respiratory failure due to COVID-19 SNOMED Code(s): 228323576 ICD Code: U07.1 - COVID-19; J96.00 - ACUTE RESPIRATORY FAILURE, UNSP W H YPOXIA OR HYPERCAPNIA Status: Acute (3) Generalized weakness SNOMED Code(s): 03863648 ICD Code: R53.1 - WEAKNESS Status: Acute (4) Thrush of mouth and esophagus SNOMED Code(s): 846741852 ICD Code: B37.81 - CANDIDAL ESOPHAGITIS; B37.0 - CANDIDAL STOMATITIS Status: Acute (5) Hyponatremia SNOMED Code(s): 78725189 ICD Code: E87.1 - HYPO-OSMOLALITY AND HYPONATREMIA Status: Acute Priority: High (6) HX: breast cancer SNOMED Code(s): 500491174 ICD Code: Z85.3 - PERSONAL HISTORY OF MALIGNANT NEOPLASM OF BREAST Status: Chronic - Patient Summary/Data Consults: Consultations 04/29/21 12:22 PT Evaluation and Treatment [CONS] Routine Please Evaluate and Treat. PT Reason for Consult: Strengthening This query below is only for informational purposes and is not editable. Admission Diagnosis/Problem: Hypoxia 05/02/21 12:33 OT Evaluation and Treatment [CONS] Routine Please Evaluate and Treat. OT Reason for Consult: ADL's This query below is only for informational purposes and is not editable. Admission Diagnosis/Problem: Hypoxia Hospital Course: Yenifer presented to the emergency room with progressive cough, shortness of breath and weakness. Work-up in the emergency room revealed acute respiratory failure with hypoxia as well as evidence for pneumonia related to COVID-19 infection. D-dimer and CRP were moderately elevated. The patient was unvaccinated. She was admitted to the hospital and started on therapy with dexamethasone. The morning after admission she did require increasing amounts of supplemental oxygen. We did discuss additional treatment options such as remdesivir. She was not interested in remdesivir with concern for side effects. As her supplemental oxygen requirements increased further we did discuss baricitinib and she was agreeable to trying this medication. Over the next several days we did see some slow increase in her oxygen requirements. She did require high flow and heated supplemental oxygen for several days. Eventually we were able to wean her down. She was managed with IV steroids as well as subcutaneous enoxaparin. She received about 9 doses of the baricitinib. We have been able to wean her supplemental oxygen down significantly over the last few days. Unfortunately she did develop some thrush because of the steroids and has been receiving Mycelex Miguel A shoes as well as Magic mouthwash. Her respiratory status has improved to the point that she is able to tolerate periods of time off of supplemental oxygen but does desaturate with activity. She is intermittently hypoxic at rest as well. I believe she has improved enough to be safe managed as an outpatient. She has a daughter who provides home health care and will be going home to stay with her until she recovers further. She had been on high-dose steroids for about 10 days so we have been tapering her steroids and she has an additional 9 days of steroid taper after hospital discharge. She will stay on the Mycelex as well as Magic mouthwash. She does continue to require supplemental oxygen and would benefit from supplementation at home. This has been set up through [facility] [place]. She has early follow-up via telehealth planned. She has completed adequate quarantine (20 days) for her severe illness. - Patient Instructions Diet: Regular Diet as Tolerated Activity: As Tolerated Showering/Bathing: May Shower Other/Special Instructions: 1. You were in the hospital for management of pneumonia caused by COVID-19 virus. Your Covid infection was complicated by severe hypoxic respiratory failure. Your condition has been improving with cares provided here in the hospital. COVID-19 can increase your risk of blood clot formation and I recommend that you take aspirin 81 mg daily for the next month to help reduce the risk. We have had you on high-dose steroids during the hospital stay so we will need to taper these down. Please take 2 mg of dexamethasone for the next 4 days and then 1 mg daily for 6 days thereafter and then stop. You continue to require supplemental oxygen and we have provided a prescription for home oxygen. Hopefully over the next several days to a few weeks we can wean you off of this oxygen. You may increase your activity as tolerated. 2. I have placed a referral to home health care. They will provide physical therapy services to improve your strength and endurance and ease your transition from the hospital to home. 3. Follow-up as scheduled with Dr. Ewing - Discharge Plan *PRESCRIPTION DRUG MONITORING PROGRAM REVIEWED*: Not Applicable *COPY OF PRESCRIPTION DRUG MONITORING REPORT IN PATIENT RONNIE: Not Applicable Prescriptions/Med Rec: ALPRAZolam [Alprazolam] 0.25 mg PO Q4H PRN #30 tablet PRN Reason: Anxiety dexAMETHasone [Dexamethasone] 2 mg PO ASDIRECTED #7 tablet Aspirin [Halfprin] 81 mg PO DAILY #30 tab.ec Clotrimazole [Mycelex] 10 mg PO 5XDAY #23 alfonso Home Medications: Home Meds ALPRAZolam [Alprazolam] 0.25 mg PO Q4H PRN #30 tablet 05/03/21 [Rx] Aspirin [Halfprin] 81 mg PO DAILY #30 tab.ec 05/03/21 [Rx] Clotrimazole [Mycelex] 10 mg PO 5XDAY #23 alfonso 05/03/21 [Rx] dexAMETHasone [Dexamethasone] 2 mg PO ASDIRECTED #7 tablet 05/03/21 [Rx] Oxygen Therapy Mode: Nasal Cannula (2) Patient Handouts: Hypoxia, COVID-19: What to Do If You Are Sick- CDC (10/10/2020) Referrals: Kiko Ewing MD [Primary Care Provider] - 05/09/21 10:15 am (Your appointment with Dr. Ewing is a telehealth appointment. Please call [facility] at [phone] to give verbal consent for telehealth appointment. Check "My Chart" for appointment instructions.) - Discharge Summary/Plan Comment DC Time >30 min.: Yes Total # of Minutes for Discharge Time: 45-home oxygen and home health - Patient Data Vitals - Most Recent: Last Vital Signs Temp 36.4 C 05/03/21 07:28 Pulse 76 05/03/21 07:28 Resp 16 05/03/21 07:28 BP 117/55 L 05/03/21 07:28 Pulse Ox 92 L 05/03/21 07:28 Weight - Most Recent: 63.957 kg I&O - Last 24 hours: Intake & Output 05/02/21 05/03/21 05/03/21 22:59 06:59 14:59 Intake Total 500 Balance 500 Med Orders - Current: Current Medications Acetaminophen (Acetaminophen 325 Mg Tab) 650 mg PO Q4H PRN PRN Reason: Pain/Fever Last Admin: 05/03/21 09:36 Dose: 650 mg Documented by: Benzonatate (Benzonatate 100 Mg Cap) 100 mg PO Q8H PRN PRN Reason: Cough Last Admin: 04/22/21 13:13 Dose: 100 mg Documented by: Clotrimazole (Clotrimazole 10 Mg Alfonso) 10 mg PO 5XDAY [facility] Last Admin: 05/03/21 09:36 Dose: 10 mg Documented by: Lidocaine HCl 30 ml/ Al Hydroxide/Mg Hydroxide 30 ml/Diphenhydramine HCl 75 mg 0 ml PO Q4H PRN PRN Reason: Mouth/Throat pain Last Admin: 05/02/21 09:55 Dose: 30 ml Documented by: Dexamethasone (Dexamethasone 2 Mg Tab) 2 mg PO DAILY [facility] Last Admin: 05/03/21 09:36 Dose: 2 mg Documented by: Enoxaparin Sodium (Enoxaparin 40 Mg/0.4 Ml Syringe) 40 mg SUBCUT DAILY [facility] Last Admin: 05/03/21 09:36 Dose: 40 mg Documented by: Guaifenesin/Dextromethorphan (Guaifenesin/Dextromethorphan 100-10 Mg/5 Ml Soln 10 Ml Cup) 10 ml PO Q4H PRN PRN Reason: Cough Last Admin: 04/27/21 08:53 Dose: 10 ml Documented by: Lactobacillus Rhamnosus (Lactobacillus Rhamnosus Gg (Probiotic) Cap) 1 cap PO BID [facility] Last Admin: 05/03/21 09:36 Dose: 1 cap Documented by: Lorazepam (Lorazepam Oral Concentrate 1mg/0.5ml U/D) 0.25 mg PO Q2H PRN PRN Reason: Anxiety Last Admin: 05/03/21 06:03 Dose: 0.25 mg Documented by: Melatonin (Melatonin 3 Mg Tab) 9 mg PO BEDTIME PRN PRN Reason: Sleep Last Admin: 05/02/21 22:07 Dose: 9 mg Documented by: Morphine Sulfate (Morphine 10 Mg/0.5 Ml Oral Syringe) 5 mg PO Q2H PRN PRN Reason: pain/air hunger Last Admin: 05/01/21 19:41 Dose: 5 mg Documented by: Ondansetron HCl (Ondansetron 4 Mg Tab.Dis) 4 mg PO Q4H PRN PRN Reason: Nausea/Vomiting Ondansetron HCl (Ondansetron 4 Mg/2 Ml Sdv) 4 mg IVPUSH Q4H PRN PRN Reason: Nausea/Vomiting Sodium Chloride (Sodium Chloride 0.9% 10 Ml Syringe) 10 ml FLUSH ASDIRECTED PRN PRN Reason: Keep Vein Open Discontinued Medications Dexamethasone (Dexamethasone 4 Mg/Ml Sdv) 6 mg IVPUSH Q24H [facility] Last Admin: 04/29/21 09:02 Dose: 6 mg Documented by: Dexamethasone (Dexamethasone 2 Mg Tab) 4 mg PO DAILY [facility] Last Admin: 05/02/21 09:55 Dose: 4 mg Documented by: Enoxaparin Sodium (Enoxaparin 80 Mg/0.8 Ml Syringe) 70 mg SUBCUT Q12H [facility] Last Admin: 04/20/21 03:34 Dose: 70 mg Documented by: Nystatin (Nystatin Susp 100,000 Unit/Ml 5 Ml Ud Cup) 5 ml PO QID [facility] Last Admin: 05/02/21 09:55 Dose: 5 ml Documented by: Sodium Chloride (Sodium Chloride 0.9% 10 Ml Syringe) 10 ml FLUSH ASDIRECTED PRN PRN Reason: Keep Vein Open Last Admin: 04/20/21 00:51 Dose: 10 ml Documented by:
[2021-05-03 11:36] VITALS: BP 119/54; PULSE 85
== END 2021-05-03 12:45 | disposition home health service (06) | DRG 177 ==
LOC: JP.ED 00:07 → JP.MS 02:52 → JP.2SS 04-26 08:40 → JP.MS 05-01 15:05
PROVIDERS: ADMIT Family Medicine; ATTEND Internal Medicine
PROC: 3E0333Z Introduction of Anti-inflammatory into Peripheral Vein, Percutaneous Approach (ICD-10-PCS; principal; 2021-04-20)
PROC: XW0DXM6 Introduction of Baricitinib into Mouth and Pharynx, External Approach, New Technology Group 6 (ICD-10-PCS; 2021-04-22)
PROC: 5A0935A Assistance with Respiratory Ventilation, Less than 24 Consecutive Hours, High Flow/Velocity Cannula (ICD-10-PCS; 2021-04-26)
PROC: 3E0333Z Introduction of Anti-inflammatory into Peripheral Vein, Percutaneous Approach (ICD-10-PCS; 2021-04-30)
DX: U07.1 COVID-19 (principal); J12.82 Pneumonia due to coronavirus disease 2019; J96.01 Acute respiratory failure with hypoxia; B37.81 Candidal esophagitis; B37.0 Candidal stomatitis; E87.1 Hypo-osmolality and hyponatremia; N39.0 Urinary tract infection, site not specified; R09.02 Hypoxemia; Z79.899 Other long term (current) drug therapy; H54.7 Unspecified visual loss; Z85.3 Personal history of malignant neoplasm of breast
CPT/HCPCS: 36415; 71045; 71045-26; 80048; 80053; 82728; 83605; 83615; 85025; 85027; 85379; 86140; 94762; 97110-GP; 97162-GP; 97165-GO; 97530-GP; 97535-GO; 97535-GP; 99285-25; A9270-GY; J1100; J1650; J8540

== ENCOUNTER 2022-10-28 13:55 | Emergency (ER) | payer MEDICARE ==
[2022-10-28 15:24] LABS: ESTIMATED GFR 55 mL/min (>60)
[2022-10-28 16:18] VITALS: BP 113/54; PULSE 97
== END 2022-10-28 16:38 | disposition home or self-care (01) ==
LOC: JP.ED 13:55
DX: B34.9 Viral infection, unspecified (principal); Z86.16 Personal history of COVID-19; Z20.822 Contact with and (suspected) exposure to COVID-19
CPT/HCPCS: 36415; 80053; 81001; 83605; 85025; 99284; U0002

== ENCOUNTER 2024-07-13 05:52 | Emergency (ER) | payer MEDICARE ==
[2024-07-13 06:42] LABS: BASOPHILS ABSOLUTE AUTO 0.04 K/uL (0.00-0.10); BASOPHILS PERCENT AUTO 0.4 % (0.1-1.3); EOSINOPHILS ABSOLUTE AUTO 0.06 K/uL (0.00-0.40); EOSINOPHILS PERCENT AUTO 0.5 % (0.0-5.4); HEMATOCRIT 33.3 % (34.3-46.0); HEMOGLOBIN 11.4 g/dL (11.2-15.5); IMMATURE GRAN ABSOLUTE AUTO 0.03 K/uL (0.00-0.23); IMMATURE GRAN PERCENT AUTO 0.3 % (0.0-0.7); LYMPHOCYTES ABSOLUTE AUTO 1.71 K/uL (0.8-3.3); MEAN CORPUSCULAR HEMOGLOBIN 32.2 pg (31.6-35.5); MEAN CORPUSCULAR HGB CONC 34.2 g/dL (31.6-35.5); MEAN CORPUSCULAR VOLUME 94.1 fL (81.4-99.0); MONOCYTES ABSOLUTE AUTO 1.06 K/uL (0.20-0.90); MONOCYTES PERCENT AUTO 9.3 % (3.3-12.6); NEUTROPHILS ABSOLUTE AUTO 8.51 K/uL (1.0-7.6); NEUTROPHILS PERCENT AUTO 74.5 % (40.0-78.1); PLATELET COUNT,PLT 205 K/uL (130-375); RED BLOOD CELL COUNT 3.54 M/uL (3.77-5.24); WHITE BLOOD CELL COUNT,WBC 11.4 K/uL (3.2-11.0)
[2024-07-13] MEDS: Acetaminophen 325 MG Tab PO ONE (06:57)
[2024-07-13 07:03] LABS: A/G RATIO 0.9 (1.2-2.2); ALANINE AMINOTRANSFERASE,ALT 14 U/L (12-78); ALBUMIN 3.2 g/dL (3.4-5.0); ALKALINE PHOSPHATASE 57 U/L (46-116); ASPARTATE AMNIOTRANSFERASE,AST 15 U/L (15-37); BLOOD UREA NITROGEN,BUN 16 mg/dL (7-18); CALCIUM 8.8 mg/dL (8.5-10.1); CARBON DIOXIDE,CO2 27 mmol/L (21-32); CHLORIDE,CL 103 mmol/L (100-108); CREATININE 0.8 mg/dL (0.6-1.0); EST CRCL DRUG DOSING (CG) 37.71 mL/min; ESTIMATED GFR 70 mL/min (>60); GLUCOSE RANDOM 124 mg/dL (74-106); POTASSIUM,K 3.9 mmol/L (3.6-5.2); PROTEIN TOTAL,TP 6.6 g/dL (6.4-8.2); SODIUM,NA 137 mmol/L (140-148)
[2024-07-13 07:04] LABS: ANION GAP 10.9 mmol/L (5.0-14.0)
[2024-07-13 07:09] LABS: APPEARANCE,URINE CLEAR (CLEAR); BILIRUBIN,URINE NEGATIVE (NEGATIVE); COLOR,URINE YELLOW (YELLOW); GLUCOSE,URINE NEGATIVE (NEGATIVE); KETONES,URINE NEGATIVE (NEGATIVE); LEUKOCYTE ESTERASE,URINE NEGATIVE (NEGATIVE); NITRITE,URINE NEGATIVE (NEGATIVE); OCCULT BLOOD,URINE NEGATIVE (NEGATIVE); PH,URINE 5.5 (5.0-8.0); PROTEIN,URINE NEGATIVE (NEGATIVE); UROBILINOGEN,URINE 0.2 EU/dL (0.2-1.0)
[2024-07-13] MEDS: Sodium Chloride 0.9% 1,000 ML IV STA (07:12)
[2024-07-13 07:17] VITALS: BP 127/53; PULSE 75
[2024-07-13 07:42] LABS: AMORPHOUS SEDIMENT,URINE NOT SEEN; BACTERIA,URINE NOT SEEN; EPITHELIAL CELLS,URINE NOT SEEN; MUCUS,URINE NOT SEEN; RBC,URINE NOT SEEN (0-5); WBC,URINE NOT SEEN (0-5)
== END 2024-07-13 08:35 | disposition home or self-care (01) ==
LOC: JP.ED 05:52
DX: R10.84 Generalized abdominal pain (principal); Z86.16 Personal history of COVID-19
CPT/HCPCS: 36415; 74018; 80053; 81001; 85025; 96360; 99284; A9270; J7030; 99283